=== PATIENT | male | born 1950 | race Caucasian/White ===

== ENCOUNTER 2020-12-10 09:46 | Outpatient (REF) | payer MEDICARE, MEDICAID, SELFPAY ==
--- NOTE | ~2020-12-10 | CT_ITS ---
EXAMINATION: CT CHEST SCREENING CLINICAL INFORMATION: Nicotine dependence, cigarettes. COMPARISON: CT chest screening 10/21/2019 TECHNIQUE: Multidetector volumetric CT imaging of the chest is performed without contrast using low dose technique. Additional 2-D coronal and sagittal reformatted images and axial 3-D maximum intensity projection (MIP) images are generated on the CT workstation. This CT examination was performed using dose optimization techniques as appropriate, variously including the following: *Automated exposure control *Adjustment of mA and/or kV according to patient size (this includes techniques or standardized protocols for targeted exams where dose is matched to indication/reason for exam; i.e. extremities or head) *Use of iterative reconstruction technique DLP: 50 mGy-cm FINDINGS: LUNGS: Previously seen tumor nodule in the right lung apex now measures 1 mm on axial image 11/4. The other 2 described nodules in the right upper lobe previously are not seen at this time. 4 mm calcified nodule right lower lobe axial image 38/4 is stable. MEDIASTINUM: The thyroid lobes are slightly asymmetrical but otherwise unremarkable. The central trachea and the bronchi are widely patent. There is atherosclerotic calcification of the thoracic aorta. No aneurysmal dilatation is seen. There are small shotty lymph nodes in the mediastinum. There are coronary artery calcifications present. No abnormal size mediastinal lymph nodes seen. There is no pericardial effusion. PLEURA: There is no pleural effusion. No pleural mass or thickening. AXILLA: No lymphadenopathy. UPPER ABDOMEN: Visualized liver, spleen, pancreas, and adrenal glands are unremarkable. OSSEOUS STRUCTURES: Moderate ventral spondylosis mid and lower dorsal spine. No lytic process. CT/CT lung screening IMPRESSION: Stable nodule right upper lobe. The other 2 nodules seen previously are not seen at this time. No new nodules seen. ASSESSMENT: Lung-RADS category 2: Benign. RECOMMENDATION: Low-dose annual CT chest.
== END 2020-12-10 09:47 | disposition home or self-care (01) ==
LOC: HO.CT 09:46
PROVIDERS: Visit Provider Surgery
DX: Z12.2 Encounter for screening for malignant neoplasm of respiratory organs (principal); F17.210 Nicotine dependence, cigarettes, uncomplicated
CPT/HCPCS: 71271

== ENCOUNTER 2022-04-06 06:52 | Outpatient (REF) | payer MEDICARE, MEDICAID, SELFPAY ==
--- NOTE | ~2022-04-06 | CT_ITS ---
EXAMINATION: CT CHEST SCREENING CLINICAL INFORMATION: Nicotine dependence, current cigarette smoker, 1 PPD x56 pack years. COMPARISON: None. TECHNIQUE: Multidetector volumetric CT imaging of the chest is performed without contrast using low dose technique. Additional 2D coronal and sagittal reformatted images and axial 3D maximum intensity projection (MIP) images are generated on the CT workstation. This CT examination was performed using dose optimization techniques as appropriate, variously including the following: *Automated exposure control *Adjustment of mA and/or kV according to patient size (this includes techniques or standardized protocols for targeted exams where dose is matched to indication/reason for exam; i.e. extremities or head) *Use of iterative reconstruction technique DLP: 52 mGy-cm. FINDINGS: LUNGS: The lungs are well expanded with right apical parenchymal scarring. The previously described right upper lobe nodules are not visualized at this time. There are no new noncalcified nodules seen. There is a 3 mm calcified nodule right lower lobe axial image 302/6, stable. MEDIASTINUM: The thyroid lobes are symmetric and normal. The central trachea and the bronchi are widely patent. There is arthroscopic calcification of thoracic arch. No abnormal-sized mediastinal or hilar lymph nodes seen. There is no pedicle effusion. There are coronary artery calcifications present. There is a right pericardial cystic collection measuring 3.1 x 3.3 cm, in 2019 it measured 2.6 x 2.0 cm. PLEURA: There is no pleural effusion. No pleural mass or thickening. AXILLA: No lymphadenopathy. UPPER ABDOMEN: Visualized liver, spleen, pancreas and bilateral adrenal glands are unremarkable. Gallbladder has been surgically removed. OSSEOUS STRUCTURES: No lytic or sclerotic process seen. There is moderate spondylosis dorsal spine. CT/CT lung screening IMPRESSION: Previously seen right upper lobe nodules are not well visualized. No change in 3 mm calcified nodule right lower lobe. No change in the right pericardial cyst since 2019. ASSESSMENT: Lung-RADS category 2: Benign. RECOMMENDATION: Low-dose annual CT chest.
== END 2022-04-06 06:53 | disposition home or self-care (01) ==
LOC: HO.CT 06:52
PROVIDERS: Visit Provider Physician Assistant Medical
DX: Z12.2 Encounter for screening for malignant neoplasm of respiratory organs (principal); F17.210 Nicotine dependence, cigarettes, uncomplicated
CPT/HCPCS: 71271

== ENCOUNTER → 2022-11-25 07:14 | Outpatient (REF) | payer MEDICARE, MEDICAID, SELFPAY ==
--- NOTE | 2022-11-25 07:17 | CA_ITS ---
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 The calculated ejection fraction is 53% by biplane method. - The left atrium is severely dilated. - No obvious valvular pathology seen on this study. Findings Left Ventricle Normal left ventricular cavity size. There is mildly increased left ventricular wall thickness. The left ventricular systolic function is low normal. The calculated ejection fraction is 53% by biplane method. There is no evidence of regional wall motion abnormalities. E/E prime ratio is >15, consistent with elevated filling pressures. Evidence suggests grade I (mild) diastolic dysfunction. LV peak GLS -16.4%. Right Ventricle Normal right ventricular cavity size and systolic function. Atria The left atrium is severely dilated. The right atrium is normal in size. Aortic Valve There is a normal trileaflet aortic valve. There is no aortic valve stenosis. There is trace (trivial) aortic valve regurgitation. Mitral Valve The mitral valve appears normal. There is mild mitral valve regurgitation. There is no mitral valve stenosis. Pulmonic Valve The pulmonic valve is likely normal. Tricuspid Valve There is trace tricuspid valve regurgitation. There is no evidence of pulmonary hypertension. Great Vessels The asc aorta is normal in size. Venous The inferior vena cava is normal in size and collapses greater than 50% with inspiration. Pericardium/Pleural There is no evidence of pericardial effusion. Prior Study Comparison Changes noted compared to prior study dated: 01/16/2019. LVEF slightly lower. Recommendations, Care & Conclusions No obvious valvular pathology seen on this study. Measurements 2D Linear Measurements IVSd: 1.24 0.6-0.9/0.6-1.0 cm LVIDd: 5.03 3.9-5.3/4.2-5.9 cm LVIDd Index: 2.76 2.4-3.2/2.2-3.1 cm/m2 LVIDs: 3.21 2.0-3.6 cm LVPWd: 1.29 0.7-1.1 cm Ao Root: 3.70 2.1-3.5 cm LA Diam: 4.50 2.7-3.8/3.0-4.0 cm LAIDs Index: 2.47 1.5-2.3 cm/m2 LV Mass: 317.01 67-162/88-224 g LV Mass Index: 174.18 43-95/49-115 g/m2 LVOT Diam: 2.20 3.0+(-)1.3 cm 2D Systolic Function EF 4C: 49.30 >55% EF 2C: 51.70 >55% EF BiP: 53.20 >55% Mitral Valve MV Pk E: 0.50 MV PK A: 1.26 MV Decel Time: 187.00 E/A: 0.40 E'Lateral: 5.66 E'Medial: 4.79 E/E' Med: 10.50 E/E' Lat: 8.90 PHT: 55.00 MVA PHT: 4.00 Decel Trinity: 4.47 Aortic Valve AoV Pk Rik: 1.28 AoV Mn Rik: 0.79 AoV VTI: 0.34 AoV Pk Grad: 7.00 Aov Mn Grad: 3.00 MANUEL Cont.VTI: 2.32 LVOT LVOT Pk Rik: 0.74 LVOT Mn Rik: 0.46 LVOT VTI: 0.21 LVOT Pk Grad: 2.00 LVOT Mn Grad: 1.00 LVOT Diam: 2.20 LVOT Area: 3.80 Diastolic Function MV Pk E: 0.50 MV Pk A: 1.26 E/A: 0.40 E'Medial: 4.79 E/E' Med: 10.50 E' Laterial: 5.66 E/E' Lat: 8.90 Right Ventricle TAPSE (mm): 24.80 TVS' Rik: 16.10 Tricuspid Valve TR Pk Rik: 2.30 TR Pk Grad: 21.00 Great Vessels Aorta Ao Root-2D: 3.70 2.0-3.7 cm Ao Asc: 3.60 2.1-3.4 cm Pulmonary Valve PV Pk Rik: 0.93 Peak PV Grad: 3.00 Updated in Other Vendor System with Status of Final Joo Forde MD electronically signed on 11/25/2022 2:11:24 PM with status of Final
== END ==
LOC: HO.CARD 07:14
PROVIDERS: Visit Provider Registered Nurse
DX: I49.9 Cardiac arrhythmia, unspecified (principal)
CPT/HCPCS: 93306; 93356

== ENCOUNTER → 2023-01-11 10:26 | Outpatient (BNVA) | payer MEDICARE, MEDICAID, SELFPAY | PROVIDERS: PCP Registered Nurse; Referring Provider Registered Nurse; Visit Provider Internal Medicine | DX: I44.1 Atrioventricular block, second degree (principal); I11.9 Hypertensive heart disease without heart failure; I25.10 Atherosclerotic heart disease of native coronary artery without angina pectoris; E11.8 Type 2 diabetes mellitus with unspecified complications; E78.5 Hyperlipidemia, unspecified | CPT/HCPCS: 93005; 99202 ==

== ENCOUNTER → 2023-01-31 08:25 | Outpatient (REF) | payer MEDICARE, MEDICAID, SELFPAY ==
--- NOTE | ~2023-01-31 | NM_ITS ---
EXERCISE MYOCARDIAL PERFUSION STUDY INDICATION: Abnormal EKG, multiple risk factors, assess for coronary disease and ischemia TECHNIQUE: The patient was brought in for an exercise perfusion study on 01/31/2023. Patient performed exercise as per Chepe protocol and was injected 25 mCi of sestamibi once target heart rate was achieved. Images were obtained using the SPECT gamma camera interlaced with the gating device. Images were obtained in supine position. Resting perfusion study was performed on 02/01/2023. Patient was administered 25 mCi of sestamibi intravenously at rest. Images were then obtained in supine position. Images were processed with the software and compared side to side in short axis, horizontal long axis and vertical long axis views. Total DLP 85mGy-cm. FINDINGS: Raw images were reviewed. The stress perfusion study showed minimally reduced tracer uptake in the distal inferolateral wall. No significant change with CT attenuation correction. Gating not performed due to irregular heart rates. Resting study shows minimally reduced tracer uptake in the distal part of inferolateral wall. There is improvement with CT attenuation correction suggestive of diaphragmatic attenuation artifact. Gating not performed due to irregular heart rates. The findings are consistent with mild fixed distal inferolateral defect. Could be artifactual. Less likely to represent infarct. NM/NM cardiolite stress test IMPRESSION: 1. Myocardial perfusion imaging study shows no clear evidence of ischemia. Small, mild, low risk defect in the distal inferolateral wall; suspect artifactual. 2. Gating not performed due to irregular heart rate. EKG component of the test reported separately.
--- NOTE | 2023-01-31 08:28 | HM_ITS ---
Conclusion: 1. Patient was monitored for total period of 2 days and 22 hours 2. Baseline was normal sinus rhythm with average heart rate of 61 beats per minute 3. No significant pauses or bradycardia noted 4. Mobitz type 1 second-degree AV block noted 5. Frequent PVCs noted with total burden of 9.1% 6. No patient reported events MTDD
--- NOTE | 2023-01-31 08:28 | CA_ITS ---
Acquisition Time: 2023-01-31 08:49:59 Total Exercise Time: 00:05:30 Test Indications: AFIB, HB2 Medications: SEE H Protocol: LAMONTE Max HR: 116 BPM 77% of Pred: 149 BPM Max BP: 164/060 mmHG Max Work Load: 5.1 METS Exercise stress test exercise 5 min 30 sec of Lamonte protocol stage 1 achieving 72% MPHR, 5.1 METs, with mild sob, no chest discomfort, with fatigue and request to stop, with isolated PVCs and ventricular cuplets and a 5 beat ventricular run, with second degree type 1 noted throughout, with normotensive response to exercise, with blunted heart rate response, without EKG changes of ischemia. Nuclear images pending. Test reviewed with Dr. Selby. Referred By: Joo Forde Overread By: HANK ROWE
== END ==
LOC: HO.CARD 08:25
PROVIDERS: PCP Registered Nurse; Visit Provider Internal Medicine
DX: I45.9 Conduction disorder, unspecified (principal); R00.2 Palpitations
CPT/HCPCS: 78452; 93017; 93242; A9500

== ENCOUNTER 2023-04-05 08:03 | Outpatient (AMB) | payer MEDICARE, MEDICAID, SELFPAY ==
--- NOTE | 2023-04-05 08:30 | MHC.OFFVIS ---
Intake Vital Signs 04/05/23 08:32 Height 5 ft 5 in Weight 167 lb BMI 27.8 BP 142/86 H Blood Pressure Location Lt brachial Position Sitting Pulse 70 Intake Visit Reasons: 3 month follow up after testing Intake Note: 3 month follow up Equipment Mechanic Specialist Required: Yes Equipment Mechanic Specialist Language: Tire Buster Name: Kika [id number] Accompanied by: Self / Same As Patient Allergies No Known Allergies Allergy (Verified 04/05/23 08:31) Medication List - Last Reconciled 04/05/23 by Joo Forde MD amitriptyline 25 mg PO BEDTIME amlodipine 10 mg PO QAM aspirin 81 mg PO BEDTIME atorvastatin 80 mg PO BEDTIME cholecalciferol (vitamin D3) (Vitamin D3) 25 mcg PO QAM cyanocobalamin (vitamin B-12) 500 mcg PO QAM empagliflozin (Jardiance) 25 mg PO QAM ezetimibe 10 mg PO QPM folic acid 1 mg PO QAM glipizide 5 mg PO QAM hydrochlorothiazide 25 mg PO QAM losartan 100 mg PO QAM metformin 1,000 mg PO pregabalin 50 mg PO tamsulosin 0.4 mg PO BEDTIME 30 days HPI HPI Comments History of Present Illness Details Aren returns for follow-up. He was recently seen in consultation regarding question of irregular pulse and atrial fibrillation. Patient himself does not have any clear cardiac symptoms. No known coronary artery disease or myocardial infarction or cardiomyopathy or in fact any cardiac issues whatsoever in the past. He states he is fairly active without any major limitations. Multiple medical comorbidities however including diabetes, hypertension, dyslipidemia. He is also a smoker as listed. Within limits of his activity, does not have any chest pain or shortness of breath or presyncope or any other cardiac symptoms. Since last visit, he has completed a Holter and stress test. [facility] Medical History (Updated 01/11/23 @ 11:06 by Joo Forde MD) Atherosclerotic cardiovascular disease Essential hypertension Other and unspecified hyperlipidemia Type 2 diabetes mellitus with unspecified complications Surgical History Hx of cholecystectomy Family History Mother Cancer Father No problems noted. Social History Alcohol intake: current Alcohol intake frequency: a few times a week Patient Tobacco Use Status: Current everyday Tobacco user Tobacco use type: Cigarette Cigarette Packs Per Day: 1 Cigarettes Per Day: 14 Review of Systems Const Denies weakness ENT Denies dizziness Card Denies chest pain, Denies chest pain with activity, Denies syncope, Denies rapid heart rate, Denies pedal edema, Denies edema, Denies leg edema, Denies lightheadedness, Denies palpitations, Denies dyspnea, Denies dyspnea on exertion and Denies orthopnea Resp Denies cough, Denies dyspnea and Denies dyspnea on exertion GI Denies hematochezia and Denies change in stool character Musc Denies abnormal gait, Denies muscle cramps, Denies muscle weakness, Denies numbness, Denies radiating pain into limb and Denies tingling Neuro Denies abnormal gait, Denies dizziness, Denies syncope, Denies numbness, Denies tingling and Denies weakness Endo Denies palpitations Physical Exam Vital Signs: Last Vital Signs Pulse 70 04/05/23 08:32 BP 142/86 H 04/05/23 08:32 BMI result Body Mass Index 27.8 Const General: comfortable and no acute distress Orientation/consciousness: patient oriented x3 HEENT Other: Unremarkable Head: Yes normal to inspection Neck Neck: Yes normal visual inspection Chest Chest palpation & inspection: normal inspection of the chest Resp Auscultation: clear to auscultation bilaterally Cardio Palpation: normal PMI Heart sounds: S1 normal heart sound present, S2 normal heart sound present, no gallops, no murmurs and no rubs GI Palpation (GI): Soft to palpation Back/Spine/Pelvis Other: unremarkable Skin General skin exam: no rashes or lesions noted Neuro General: patient oriented x3 Extrem General: Yes normal to inspection Psych Mental Status: mental status grossly normal Assessment & Plan Assessment & Plan (1) Heart block: Code(s): I45.9 - Conduction disorder, unspecified (2) Type 2 diabetes mellitus with unspecified complications: Code(s): E11.8 - Type 2 diabetes mellitus with unspecified complications (3) Essential hypertension: Code(s): I10 - Essential (primary) hypertension (4) Other and unspecified hyperlipidemia: Code(s): E78.5 - Hyperlipidemia, unspecified (5) Atherosclerotic cardiovascular disease: Code(s): I25.10 - Atherosclerotic heart disease of [place] coronary artery without angina pectoris (6) Left atrial enlargement: Code(s): I51.7 - Cardiomegaly Plan Cardiac studies reviewed. EKG shows Mobitz type 1 second-degree heart block. Echocardiogram with low-normal LVEF 53%. Slightly diminished global longitudinal strain. Left atrium appeared severely dilated. Chest CT shows coronary artery calcifications. There is also description of pericardial cyst. Holter monitor shows underlying sinus rhythm with an average rate of 61/Min. There is Mobitz type 1 second-degree heart block. frequent PVCs. In the exercise stress test, he did 5.1 METS. Blunted heart rate response. No EKG evidence of ischemia. He has some shortness of breath but no chest discomfort. Had isolated PVCs/ventricular couplets and 5 beat run. Mobitz type 1 second-degree findings throughout. Perfusion component without any significant findings. Overall, multiple medical comorbidities, heart block, coronary calcifications but no overt symptoms. Secondary risk factor modification and optimal management of his risk factors. diabetes/hypertension / dyslipidemia will need to be optimally regulated. Avoid any beta-blockers or other rate slowing agents. Follow-up in 1 year. Coding Level of Care Code Est Pt Level 4 (42599) Diagnoses Heart block I45.9 Type 2 diabetes mellitus with unspecified complications E11.8 Essential hypertension I10 Other and unspecified hyperlipidemia E78.5 Atherosclerotic cardiovascular disease I25.10 Left atrial enlargement I51.7
[2023-04-05 08:32] VITALS: BP 142/86; PULSE 70; BMI 27.8
== END 2023-04-05 08:51 | disposition home or self-care (01) ==
LOC: HO.HCSM 08:03
PROVIDERS: PCP Registered Nurse; Referring Provider Registered Nurse; Visit Provider Internal Medicine
DX: I45.9 Conduction disorder, unspecified (principal); E11.8 Type 2 diabetes mellitus with unspecified complications; I10 Essential (primary) hypertension; E78.5 Hyperlipidemia, unspecified; I25.10 Atherosclerotic heart disease of native coronary artery without angina pectoris; I51.7 Cardiomegaly
CPT/HCPCS: 99214

== ENCOUNTER → 2023-04-05 08:03 | Outpatient (BNVA) | payer MEDICARE, MEDICAID, SELFPAY | PROVIDERS: PCP Registered Nurse; Referring Provider Registered Nurse; Visit Provider Internal Medicine | DX: I45.9 Conduction disorder, unspecified (principal); I25.10 Atherosclerotic heart disease of native coronary artery without angina pectoris; I51.7 Cardiomegaly; I10 Essential (primary) hypertension; E78.5 Hyperlipidemia, unspecified; E11.8 Type 2 diabetes mellitus with unspecified complications | CPT/HCPCS: 99212 ==

== ENCOUNTER 2023-05-05 08:07 | Outpatient (REF) | payer MEDICARE, MEDICAID, SELFPAY ==
[2023-05-05 11:22] LABS: MANUAL DIFF FLAG NO
[2023-05-05 11:38] LABS: Basophils Percent Auto 0.4 % (0-2); Eosinophils Absolute Auto 0.1 X10*3/uL (0.0-0.4); Eosinophils Percent Auto 1.3 % (0-4); Hematocrit 51.2 % (42.0-52.0); Imm Gran Abs Auto 0.02 X10*3/uL (0.00-0.03); Imm Gran Pct Auto 0.3 % (0.0-0.4); Lymphocytes Absolute Auto 2.8 X10*3/uL (1.2-4.9); Lymphocytes Percent Auto 37.1 % (20-40); Mean Corpuscular HGB Conc 33.2 g/dl (31.0-36.0); Mean Corpuscular Hemoglobin 30.4 pg (27.0-33.0); Mean Corpuscular Volume 91.6 fL (80.0-98.0); Mean Platelet Volume 11.6 fL (9.4-12.4); Monocytes Absolute Auto 0.6 X10*3/uL (0.1-1.2); Neutrophils Percent Auto 52.9 % (45-73); Platelet Count 291 X10*3/uL (160-400); Red Blood Count 5.59 X10*6/uL (4.60-5.80); White Blood Count 7.5 X10*3/uL (4.8-10.8)
[2023-05-05 12:05] LABS: Anion Gap 12 (12-20); Blood Urea Nitrogen 10 mg/dL (9-16); Calcium 10.3 mg/dL (8.4-10.2); Carbon Dioxide 27 mmol/L (22-29); Chloride 104 mmol/L (96-108); Estimated Glomerular Filt Rate > 60; Iron 72 mcg/dL (45-160); Percent Iron Saturation 26 % (15-50); Phosphorus 3.1 mg/dL (2.7-4.5); Potassium 4.5 mmol/L (3.3-5.1); Sodium 138 mmol/L (135-145); Total Iron Binding Capacity 275 mcg/dL (228-428); Unsaturated Iron Binding 203 ug/dL; Uric Acid 6.6 mg/dL (3.4-7.0)
[2023-05-05 12:07] LABS: Vitamin D 25-OH Total 49.9 ng/mL (>30)
[2023-05-05 12:34] LABS: Creatinine Urine 53.29 mg/dL; Protein/Creatinine Ratio, Ur 2.16 (<0.2); Total Protein Urine Random 115 mg/dL (<12)
[2023-05-07 12:43] LABS: Calcium (PTHI) 10.2 mg/dL (8.6-10.3); PTHI 24 pg/mL (16-77)
[2023-05-09 09:54] LABS: IgA 108 mg/dL (70-320); IgG 718 mg/dL (600-1540); IgM 77 mg/dL (50-300)
== END 2023-05-05 08:08 | disposition home or self-care (01) ==
LOC: HO.HHCL 08:07
PROVIDERS: Visit Provider Internal Medicine Nephrology
DX: N18.2 Chronic kidney disease, stage 2 (mild) (principal)
CPT/HCPCS: 36415; 80051; 82306; 82310; 82565; 82570; 82784; 83540; 83970; 84100; 84156; 84520; 84550; 85025; 86334

== ENCOUNTER 2023-07-28 07:41 | Outpatient (REF) | payer MEDICARE, MEDICAID, SELFPAY ==
--- NOTE | ~2023-07-28 | CT_ITS ---
EXAMINATION: CT CHEST LOW-DOSE SCREENING WITHOUT CONTRAST HISTORY: Asymptomatic patient meeting criteria for lung screening. Smoker PATIENT PACK-YEAR HISTORY: 69 Current Smoker: Yes If former smoker, years since quitting: NA COMPARISON: 04/06/2022 TECHNIQUE: Multidetector volumetric non-contrast CT imaging of the chest was obtained on a [id number] 128 slice scanner using low dose screening CT technique. Axial thin section 0.625 mm reformations in soft tissue and lung windows were obtained. Sagittal and coronal reformations were obtained. Axial MIP images were also created and reviewed. RECONSTRUCTED WIDTH: 1.25 mm x 1.25 mm TOTAL EXAM DLP: 52 mGy-cm CTDIvol: 1.40 mGy FINDINGS: The mold breaker view is unremarkable LUNGS: There is stable calcified nodule in the right lower lobe, seen on image 329 series 6, measured 0.3 cm. There is punctate right upper lobe nodule seen on image 100 mL series 6 and 0.2 cm nodule in the right upper lobe seen on image 166. There is subpleural 0.2 cm nodule seen on image 214 series 6. Lung nodules are well expanded without significant changes of emphysema or COPD. MEDIASTINUM/LYMPHATIC STRUCTURES: No mediastinal, hilar or axillary adenopathy or free fluid collection. There is growing since previous study and September 2018 pericardial lesion most likely cyst measured 3.3 x 2.6 x 3.1 cm, on CT scan from 2018 lesion measured 2.8 x 2.3 x 1.[address] scan from March 2022 lesion measured 3.2 x 2.4 x 2.9 cm lesion revealed attenuation of 6HU, most likely cyst THYROID GLAND: Unremarkable CARDIOVASCULAR STRUCTURES: There is ectasia of ascending aorta, measures 3.9 cm. Coronary artery calcifications present. There is no pericardial effusion or cardiomegaly. PLEURA: There is no pleural effusion or pleural thickening VISUALIZED ABDOMEN: Included portions of the solid organs in the upper abdomen unremarkable on noncontrast imaging. There is small hiatal hernia. MUSCULO-SKELETAL: There is diffuse osteopenia. SPINAL COMPRESSION: Absent. CT/CT lung screening IMPRESSION: 1. No findings suspicious for malignancy/pulmonary nodule(s)/other. 2. Lung-Rads -2 DESCRIPTOR: benign. PHYSICAL FINDINGS (S CATEGORY): Finding: Pericardial cyst, slightly growing Significance category: No clinically significant RECOMMENDATION: Low dose lung CT. overall in 1 year. Visual estimate of coronary calcified plaque burden: None. However, this exam cannot replace a dedicated cardiac CT calcium score for accurate assessment.
== END 2023-07-28 07:42 | disposition home or self-care (01) ==
LOC: HO.CT 07:41
PROVIDERS: PCP Registered Nurse; Visit Provider Physician Assistant Medical
DX: Z12.2 Encounter for screening for malignant neoplasm of respiratory organs (principal); F17.210 Nicotine dependence, cigarettes, uncomplicated
CPT/HCPCS: 71271

== ENCOUNTER 2023-09-18 10:29 | Outpatient (AMB) | payer MEDICARE, MEDICAID, SELFPAY ==
[2023-09-18 10:45] VITALS: BP 140/66; PULSE 91; BMI 27.1
--- NOTE | 2023-09-18 10:45 | A.OFFVIS_ITS ---
Intake Vital Signs 09/18/23 10:45 Height 5 ft 5 in Weight 163 lb 2.273 oz BMI 27.1 BP 140/66 H Blood Pressure Location Lt brachial Position Sitting Pulse 91 Intake Visit Reasons: follow up Intake Note: follow up Male Model Required: No Accompanied by: grandson Allergies No Known Allergies Allergy (Verified 09/18/23 10:47) Medication List - Last Reconciled 09/18/23 by Joo Forde MD amitriptyline 25 mg PO BEDTIME amlodipine 10 mg PO QAM aspirin 81 mg PO BEDTIME atorvastatin 80 mg PO BEDTIME cholecalciferol (vitamin D3) (Vitamin D3) 25 mcg PO QAM cyanocobalamin (vitamin B-12) 500 mcg PO QAM empagliflozin (Jardiance) 25 mg PO QAM ezetimibe 10 mg PO QPM folic acid 1 mg PO QAM glipizide 5 mg PO QAM hydrochlorothiazide 25 mg PO QAM losartan 100 mg PO QAM metformin 1,000 mg PO pregabalin 50 mg PO tamsulosin 0.4 mg PO BEDTIME 30 days HPI HPI Comments History of Present Illness Details Aren returns for follow-up. In the past, he was seen in consultation regarding irregular pulse. Patient himself does not have any clear cardiac symptoms. No known coronary artery disease or myocardial infarction or cardiomyopathy or in fact any cardiac issues whatsoever in the past. He states he is fairly active without any major limitations. Multiple medical comorbidities however including diabetes, hypertension, dyslipidemia. He is also a smoker as listed. Within limits of his activity, does not have any chest pain or shortness of breath or presyncope or any other cardiac symptoms. PCP note requesting review of pericardial cyst. [facility] Medical History (Updated 09/18/23 @ 11:45 by Joo Forde MD) Pericardial cyst Atherosclerotic cardiovascular disease Other and unspecified hyperlipidemia Essential hypertension Type 2 diabetes mellitus with unspecified complications Surgical History Hx of cholecystectomy Family History Mother Cancer Father No problems noted. Social History Alcohol intake: current Alcohol intake frequency: a few times a week Patient Tobacco Use Status: Current everyday Tobacco user Tobacco use type: Cigarette Cigarette Packs Per Day: 1 Cigarettes Per Day: 14 Review of Systems Const Denies weakness ENT Denies dizziness Card Denies chest pain with activity, Denies syncope, Denies rapid heart rate, Denies pedal edema, Denies edema, Denies leg edema, Denies lightheadedness, Denies palpitations, Denies dyspnea, Denies dyspnea on exertion and Denies orthopnea Resp Denies cough, Denies dyspnea and Denies dyspnea on exertion GI Denies hematochezia and Denies change in stool character Musc Denies abnormal gait, Denies muscle cramps, Denies muscle weakness, Denies numbness, Denies radiating pain into limb and Denies tingling Neuro Denies abnormal gait, Denies dizziness, Denies syncope, Denies numbness, Denies tingling and Denies weakness Endo Denies palpitations Physical Exam Vital Signs: Last Vital Signs Pulse 91 09/18/23 10:45 BP 140/66 H 09/18/23 10:45 BMI result Body Mass Index 27.1 Const General: comfortable and no acute distress Orientation/consciousness: patient oriented x3 HEENT Other: Unremarkable Head: Yes normal to inspection Neck Neck: Yes normal visual inspection Chest Chest palpation & inspection: normal inspection of the chest Resp Auscultation: clear to auscultation bilaterally Cardio Palpation: normal PMI Heart sounds: S1 normal heart sound present, S2 normal heart sound present, no gallops, no murmurs and no rubs GI Palpation (GI): Soft to palpation Back/Spine/Pelvis Other: unremarkable Skin General skin exam: no rashes or lesions noted Neuro General: patient oriented x3 Extrem General: Yes normal to inspection Psych Mental Status: mental status grossly normal Office Procedures EKG Details: EKG with sinus rhythm at 74/Min with Mobitz type 1 second-degree heart block and minimal criteria for LVH. Can not exclude old anterior infarct. [id number], Complete Assessment & Plan Assessment & Plan (1) Heart block: Code(s): I45.9 - Conduction disorder, unspecified (2) Type 2 diabetes mellitus with unspecified complications: Code(s): E11.8 - Type 2 diabetes mellitus with unspecified complications (3) Essential hypertension: Code(s): I10 - Essential (primary) hypertension (4) Other and unspecified hyperlipidemia: Code(s): E78.5 - Hyperlipidemia, unspecified (5) Atherosclerotic cardiovascular disease: Code(s): I25.10 - Atherosclerotic heart disease of [place] coronary artery without angina pectoris (6) Left atrial enlargement: Code(s): I51.7 - Cardiomegaly (7) Pericardial cyst: Code(s): Q24.8 - Other specified congenital malformations of heart Plan Cardiac studies reviewed. EKG shows Mobitz type 1 second-degree heart block. Echocardiogram with low-normal LVEF 53%. Slightly diminished global longitudinal strain. Left atrium appeared severely dilated. In the CT chest, coronary artery calcification described. Ascending aortic size 3.9 cm. Pericardial cyst described with dimension of 3.3/2.6/3 0.1 cm. In 2021, measured 3.2/2.4/2 0.9 cm. Hence there is a slight increase in size. Holter monitor shows underlying sinus rhythm with an average rate of 61/Min. There is Mobitz type 1 second-degree heart block. frequent PVCs. In the exercise stress test, he did 5.1 METS. Blunted heart rate response. No EKG evidence of ischemia. He has some shortness of breath but no chest discom fort. Had isolated PVCs/ventricular couplets and 5 beat run. Mobitz type 1 second-degree findings throughout. Perfusion component without any significant findings. Overall, multiple medical comorbidities, heart block, coronary calcifications, pericardial cyst but no overt symptoms. Overall, continue aggressive risk factor modification. Optimal treatment of diabetes, hypertension, dyslipidemia. With regards to the Mobitz type 1 second-degree heart block, no specific management. Avoid any rate slowing agents. With regard to the pericardial cyst, no specific intervention at this time. As he is getting periodic lung CT scans, it may be followed on that. Discussed with grandson who came for the appointment. 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 Follow-up in 6 months. Coding Level of Care Code Est Pt Level 4 (71279) Diagnoses Heart block I45.9 Type 2 diabetes mellitus with unspecified complications E11.8 Essential hypertension I10 Other and unspecified hyperlipidemia E78.5 Atherosclerotic cardiovascular disease I25.10 Left atrial enlargement I51.7 Pericardial cyst Q24.8 CPT Codes EKG - CPT: 04681-[id number], Complete ([id number])
== END 2023-09-18 11:09 | disposition home or self-care (01) ==
PROVIDERS: PCP Registered Nurse; Visit Provider Internal Medicine
DX: I45.9 Conduction disorder, unspecified (principal); E11.8 Type 2 diabetes mellitus with unspecified complications; I10 Essential (primary) hypertension; E78.5 Hyperlipidemia, unspecified; I25.10 Atherosclerotic heart disease of native coronary artery without angina pectoris; I51.7 Cardiomegaly; Q24.8 Other specified congenital malformations of heart
CPT/HCPCS: 93010; 99214

== ENCOUNTER → 2023-09-18 10:29 | Outpatient (BNVA) | payer MEDICARE, MEDICAID, SELFPAY | PROVIDERS: PCP Registered Nurse; Visit Provider Internal Medicine | DX: I45.9 Conduction disorder, unspecified (principal); I25.10 Atherosclerotic heart disease of native coronary artery without angina pectoris; I10 Essential (primary) hypertension; I51.7 Cardiomegaly; Q24.8 Other specified congenital malformations of heart; E11.8 Type 2 diabetes mellitus with unspecified complications; E78.5 Hyperlipidemia, unspecified | CPT/HCPCS: 93005; 99212 ==

== ENCOUNTER 2023-10-31 08:04 | Outpatient (REF) | payer MEDICARE, MEDICAID, SELFPAY ==
[2023-10-31 11:41] LABS: Hematocrit 53.4 % (42.0-52.0); Hemoglobin 17.7 g/dl (14.0-18.0); Mean Corpuscular HGB Conc 33.1 g/dl (31.0-36.0); Mean Corpuscular Hemoglobin 29.9 pg (27.0-33.0); Mean Corpuscular Volume 90.2 fL (80.0-98.0); Mean Platelet Volume 11.7 fL (9.4-12.4); Platelet Count 292 X10*3/uL (160-400); Red Blood Count 5.92 X10*6/uL (4.60-5.80); Red Cell Distribution Width 13.2 % (11.0-16.0); White Blood Count 8.1 X10*3/uL (4.8-10.8)
[2023-10-31 12:08] LABS: Estimated Average Glucose 232 mg/dL; Hemoglobin A1c % 9.7 % (<6.0)
[2023-10-31 12:31] LABS: Alanine Aminotransferase 19 U/L (0-40); Albumin Level 4.4 g/dL (3.5-5.0); Alkaline Phosphatase 75 U/L (39-117); Anion Gap 15 (12-20); Aspartate Amino Transferase 16 U/L (5-37); Bilirubin Total 0.6 mg/dL (0.0-1.0); Blood Urea Nitrogen 14 mg/dL (9-16); Calcium 10.5 mg/dL (8.4-10.2); Carbon Dioxide 28 mmol/L (22-29); Chloride 102 mmol/L (96-108); Cholesterol 115 mg/dL (<200); Estimated Glomerular Filt Rate > 60; Glucose Random 212 mg/dL (60-115); HDL Cholesterol 50 mg/dL (>40); LDL Cholesterol Calculated 47 mg/dL (<100); Potassium 4.9 mmol/L (3.3-5.1); Sodium 140 mmol/L (135-145); Total Protein 7.5 g/dL (6.5-8.0); Triglycerides 92 mg/dL (<150)
[2023-10-31 12:35] LABS: TSH reflex Free T4 0.61 uIU/mL (0.32-4.0); Vitamin D 25-OH Total 33.5 ng/mL (>30)
[2023-10-31 12:37] LABS: HBS Num1 0.22 mIU/mL (0-7.99); HBc Num1 0.06 S/CO (0.00-0.79); HBsAGNum1 0.36 S/CO (0.00-0.99); HIV AB/AG Nonreactive (Nonreactive); HIV Num 1 0.05 S/CO (0.00-0.99); Hepatitis B Core Antibody Nonreactive (Nonreactive); Hepatitis B Surface Antigen Negative (Negative); Syphilis Screen Nonreactive (Nonreactive); ~HepC Num1 0.08 S/CO (0.00-0.79); ~Hepatitis B Surface Antibody NONREACTIVE (Nonreactive); ~Hepatitis C Antibody Nonreactive (Nonreactive)
[2023-10-31 12:42] LABS: Creatinine Urine 30.61 mg/dL; Microalbum/Creatinine Ratio Ur 1398.2 ug/mg cr (<30)
[2023-10-31 12:46] LABS: Folate 14.8 ng/mL (> or = 4.0); Prostate Specific Antigen 0.27 ng/mL (<0.05-4.0); Vitamin B12 1087 pg/mL (200-900)
[2023-10-31 13:29] LABS: CT PCR NOT DETECTED (Not Detect.); NG PCR NOT DETECTED (Not Detect.)
== END 2023-10-31 08:05 | disposition home or self-care (01) ==
LOC: HO.HHCL 08:04
PROVIDERS: Visit Provider Student in an Organized Health Care Education/Training Program
DX: Z00.00 Encounter for general adult medical examination without abnormal findings (principal); Z12.5 Encounter for screening for malignant neoplasm of prostate; Z11.4 Encounter for screening for human immunodeficiency virus [HIV]; Z13.6 Encounter for screening for cardiovascular disorders
CPT/HCPCS: 0353U; 36415; 80053; 80061; 82043; 82306; 82570; 82607; 82746; 83036; 84153; 84443; 85027; 86704; 86706; 86780; 86803; 87340; 87389

== ENCOUNTER 2023-11-17 08:59 | Outpatient (REF) | payer MEDICARE, MEDICAID, SELFPAY ==
--- NOTE | ~2023-11-17 | US_ITS ---
EXAMINATION: US RETROPERITONEAL LIMITED (AORTA) CLINICAL INFORMATION: Smoker. COMPARISON: None available. TECHNIQUE: Hernandez-scale, color Doppler and spectral Doppler evaluation of the abdominal aorta. FINDINGS: There is atherosclerotic plaque of the abdominal aorta and iliac arteries. Peak systolic velocity within the distal abdominal aorta is 115 cm/s. The proximal abdominal aorta is suboptimally visualized. It measures approximately 2 cm AP and 2.2 cm transverse diameter. Also, mid abdominal aorta is not optimally visualized. It measures approximately 1.7 cm AP x 2 cm transverse. Distal abdominal aorta is 1.6 cm AP x 1.8 cm transverse. The measurements of the common iliac arteries in maximum AP and TRV dimensions are as follows: Right Common Iliac Artery: 1.0 x 0.9 cm. Left Common Iliac Artery: 0.9 x 0.9 cm. US/US abdominal aortic aneurysm IMPRESSION: No evidence of abdominal aorta aneurysm.
== END 2023-11-17 09:00 | disposition home or self-care (01) ==
LOC: HO.US 08:59
PROVIDERS: PCP Registered Nurse; Visit Provider Student in an Organized Health Care Education/Training Program
DX: Z13.6 Encounter for screening for cardiovascular disorders (principal); Z72.0 Tobacco use
CPT/HCPCS: 76706

== ENCOUNTER 2024-03-26 07:37 | Outpatient (AMB) | payer MEDICARE, MEDICAID, SELFPAY ==
--- NOTE | 2024-03-26 08:20 | MHC.OFFVIS ---
Vital Signs 03/26/24 08:21 Height 5 ft 5 in Weight 160 lb 14.999 oz BMI 26.8 BP 128/66 Blood Pressure Location Lt brachial Position Sitting Pulse 56 Intake Visit Reasons: 6 mth f/up Intake Note: 6 month follow-up feeling good Desktop Administrator Required: Yes Desktop Administrator Services: Desktop Administrator Present Desktop Administrator Name: Tena li Allergies No Known Allergies Allergy (Verified 09/18/23 10:47) Medication List - Last Reconciled 03/26/24 by Joo Forde MD amitriptyline 25 mg PO BEDTIME amlodipine 10 mg PO QAM aspirin 81 mg PO BEDTIME atorvastatin 80 mg PO BEDTIME cholecalciferol (vitamin D3) (Vitamin D3) 25 mcg PO QAM cyanocobalamin (vitamin B-12) 500 mcg PO QAM empagliflozin (Jardiance) 25 mg PO QAM ezetimibe 10 mg PO QPM folic acid 1 mg PO QAM glipizide 5 mg PO QAM hydrochlorothiazide 25 mg PO QAM losartan 100 mg PO QAM metformin 1,000 mg PO pregabalin 50 mg PO tamsulosin 0.4 mg PO BEDTIME 30 days HPI Comments Details: Aren returns for follow-up. In the past, he was seen in consultation regarding irregular pulse. Patient himself does not have any clear cardiac symptoms. No known coronary artery disease or myocardial infarction or cardiomyopathy or in fact any cardiac issues whatsoever in the past. He states he is fairly active without any major limitations. Multiple medical comorbidities however including diabetes, hypertension, dyslipidemia. He is also a smoker as listed. Within limits of his activity, does not have any chest pain or shortness of breath or presyncope or any other cardiac symptoms. No new concerns since last seen. Feels good. [facility] Medical History (Updated 09/18/23 @ 11:45 by Joo Forde MD) Pericardial cyst Atherosclerotic cardiovascular disease Other and unspecified hyperlipidemia Essential hypertension Type 2 diabetes mellitus with unspecified complications Surgical History Hx of cholecystectomy Family History Mother Cancer Father No problems noted. Social History Alcohol intake: current Alcohol intake frequency: a few times a week Patient Tobacco Use Status: Current everyday Tobacco user Tobacco use type: Cigarette Cigarette Packs Per Day: 1 Cigarettes Per Day: 14 Review of Systems Const Denies chills, Denies fatigue, Denies fever(s), Denies frequent falls, Denies weakness, Denies weight gain and Denies weight loss ENT Denies dizziness Card Denies chest pain, Denies leg edema, Denies lightheadedness, Denies palpitations, Denies dyspnea, Denies dyspnea on exertion, Denies orthopnea and Denies other (loss of consciousness) Resp Denies cough, Denies dyspnea and Denies dyspnea on exertion GI Denies hematochezia and Denies change in stool character Musc Denies abnormal gait, Denies muscle weakness, Denies numbness, Denies radiating pain into limb and Denies tingling Neuro Denies abnormal gait, Denies dizziness, Denies frequent falls, Denies numbness, Denies tingling and Denies weakness Endo Denies fatigue and Denies palpitations Physical Exam Vital Signs: Last Vital Signs Pulse 56 03/26/24 08:21 BP 128/66 03/26/24 08:21 BMI result Body Mass Index 26.8 Const General: comfortable and no acute distress Orientation/consciousness: patient oriented x3 HEENT Other: Unremarkable Head: Yes normal to inspection Neck Neck: Yes normal visual inspection Chest Chest palpation & inspection: normal inspection of the chest Resp Auscultation: clear to auscultation bilaterally Cardio Palpation: normal PMI Heart sounds: S1 normal heart sound present, S2 normal heart sound present, no gallops, no murmurs and no rubs GI Palpation (GI): Soft to palpation Back/Spine/Pelvis Other: unremarkable Skin General skin exam: no rashes or lesions noted Neuro General: patient oriented x3 Extrem General: Yes normal to inspection Psych Mental Status: mental status grossly normal Assessment & Plan Assessment & Plan (1) Heart block: Code(s): I45.9 - Conduction disorder, unspecified Category: Medical (2) Type 2 diabetes mellitus with unspecified complications: Code(s): E11.8 - Type 2 diabetes mellitus with unspecified complications Category: Medical (3) Essential hypertension: Code(s): I10 - Essential (primary) hypertension Category: Medical (4) Other and unspecified hyperlipidemia: Code(s): E78.5 - Hyperlipidemia, unspecified Category: Medical (5) Atherosclerotic cardiovascular disease: Code(s): I25.10 - Atherosclerotic heart disease of [place] coronary artery without angina pectoris Category: Medical (6) Left atrial enlargement: Code(s): I51.7 - Cardiomegaly Category: Medical (7) Pericardial cyst: Code(s): Q24.8 - Other specified congenital malformations of heart Category: Medical Plan Cardiac studies reviewed. EKG shows Mobitz type 1 second-degree heart block. Echocardiogram with low-normal LVEF 53%. Slightly diminished global longitudinal strain. Left atrium appeared severely dilated. In the CT chest, coronary artery calcification described. Ascending aortic size 3.9 cm. Pericardial cyst described with dimension of 3.3/2.6/3.1 cm. In 2021, measured 3.2/2.4/2.9 cm. Hence there is a slight increase in size. Holter monitor shows underlying sinus rhythm with an average rate of 61/Min. There is Mobitz type 1 second-degree heart block. frequent PVCs. In the exercise stress test, he did 5.1 METS. Blunted heart rate response. No EKG evidence of ischemia. He has some shortness of breath but no chest discomfort. Had isolated PVCs/ventricular couplets and 5 beat run. Mobitz type 1 second-degree findings throughout. Perfusion component without any significant findings. Overall, multiple medical comorbidities, heart block, coronary calcifications, pericardial cyst but no overt symptoms. He does not need any specific management from cardiac. Mainly risk factor modification diabetes, hypertension and dyslipidemia. With regard to the Mobitz 1 second-degree heart block, will need to monitor for any progressive heart blocks. Avoid rate slowing agents like beta-blockers. No specific management for the pericardial cyst. Whenever he is getting lung CT scan, that can also be followed. We will follow him back in about 6 months' time. Coding Level of Care Code Est Pt Level 4 (32791) Diagnoses Heart block I45.9 Type 2 diabetes mellitus with unspecified complications E11.8 Essential hypertension I10 Other and unspecified hyperlipidemia E78.5 Atherosclerotic cardiovascular disease I25.10 Left atrial enlargement I51.7 Pericardial cyst Q24.8
[2024-03-26 08:21] VITALS: BP 128/66; PULSE 56; BMI 26.8
== END 2024-03-26 09:06 | disposition home or self-care (01) ==
PROVIDERS: PCP Registered Nurse; Visit Provider Internal Medicine
DX: I45.9 Conduction disorder, unspecified (principal); E11.8 Type 2 diabetes mellitus with unspecified complications; I10 Essential (primary) hypertension; E78.5 Hyperlipidemia, unspecified; I25.10 Atherosclerotic heart disease of native coronary artery without angina pectoris; I51.7 Cardiomegaly; Q24.8 Other specified congenital malformations of heart
CPT/HCPCS: 99214

== ENCOUNTER → 2024-03-26 07:37 | Outpatient (BNVA) | payer MEDICARE, MEDICAID, SELFPAY | PROVIDERS: PCP Registered Nurse; Visit Provider Internal Medicine | DX: I25.10 Atherosclerotic heart disease of native coronary artery without angina pectoris (principal); I10 Essential (primary) hypertension; I51.7 Cardiomegaly; I45.9 Conduction disorder, unspecified; E78.5 Hyperlipidemia, unspecified; Q24.8 Other specified congenital malformations of heart; E11.9 Type 2 diabetes mellitus without complications | CPT/HCPCS: 99212 ==

== ENCOUNTER 2024-10-01 08:35 | Outpatient (AMB) | payer MEDICARE, MEDICAID, SELFPAY ==
--- NOTE | 2024-10-01 08:51 | MHC.OFFVIS ---
Vital Signs 10/01/24 08:54 Height 5 ft 5 in Weight 156 lb 8.451 oz BMI 26.0 BP 132/60 Blood Pressure Location Lt brachial Position Sitting Pulse 48 L Intake Visit Reasons: 6 mth f/up Valet Attendant Required: Yes Valet Attendant Services: Valet Attendant Present Valet Attendant Name: Douglas [id number] Accompanied by: Self / Same As Patient Allergies No Known Allergies Allergy (Verified 09/18/23 10:47) Medication List - Last Reconciled 10/01/24 by Joo Forde MD amitriptyline 25 mg PO BEDTIME amlodipine 10 mg PO QAM aspirin 81 mg PO BEDTIME atorvastatin 80 mg PO BEDTIME cholecalciferol (vitamin D3) (Vitamin D3) 25 mcg PO QAM cyanocobalamin (vitamin B-12) 500 mcg PO QAM empagliflozin (Jardiance) 25 mg PO QAM ezetimibe 10 mg PO QPM folic acid 1 mg PO QAM glipizide 5 mg PO QAM hydrochlorothiazide 25 mg PO QAM losartan 100 mg PO QAM metformin 1,000 mg PO BID pregabalin 50 mg PO tamsulosin 0.4 mg PO BEDTIME 30 days HPI Comments Details: Aren returns for follow-up. Main issue is Mobitz type 1 second-degree heart block. He also has a pericardial cyst but asymptomatic. He states he feels fine. Has no cardiac symptoms. Active without any limitations. Many comorbidities however including diabetes, hypertension, dyslipidemia. He is also a smoker as listed. [facility] Medical History (Updated 07/15/24 @ 14:10 by BAIRON Garza) History of latent tuberculosis Nicotine dependence, cigarettes, uncomplicated Pericardial cyst Atherosclerotic cardiovascular disease Other and unspecified hyperlipidemia Essential hypertension Type 2 diabetes mellitus with unspecified complications Surgical History Hx of cholecystectomy Family History Mother Cancer Father No problems noted. Social History Alcohol intake: current Alcohol intake frequency: a few times a week Patient Tobacco Use Status: Current everyday Tobacco user Tobacco use type: Cigarette Cigarette Packs Per Day: 1 Cigarettes Per Day: 14 Review of Systems Const Denies chills, Denies fatigue, Denies fever(s), Denies weight gain and Denies weight loss ENT Denies dizziness Card Denies chest pain, Denies leg edema, Denies lightheadedness, Denies palpitations, Denies dyspnea on exertion, Denies orthopnea and Denies other Resp Denies cough and Denies dyspnea on exertion GI Denies hematochezia and Denies change in stool character Musc Denies abnormal gait, Denies muscle weakness, Denies numbness, Denies radiating pain into limb and Denies tingling Neuro Denies abnormal gait, Denies dizziness, Denies numbness and Denies tingling Endo Denies fatigue and Denies palpitations Physical Exam Vital Signs: Last Vital Signs Pulse 48 L 10/01/24 08:54 BP 132/60 10/01/24 08:54 BMI result Body Mass Index 26.0 Const General: comfortable and no acute distress Orientation/consciousness: patient oriented x3 HEENT Other: Unremarkable Head: Yes normal to inspection Neck Neck: Yes normal visual inspection Chest Chest palpation & inspection: normal inspection of the chest Resp Auscultation: clear to auscultation bilaterally Cardio Palpation: normal PMI Heart sounds: S1 normal heart sound present, S2 normal heart sound present, no gallops, no murmurs and no rubs GI Palpation (GI): Soft to palpation Back/Spine/Pelvis Other: unremarkable Skin General skin exam: no rashes or lesions noted Neuro General: patient oriented x3 Extrem General: Yes normal to inspection Psych Mental Status: mental status grossly normal Office Procedures EKG Details: EKG shows sinus rhythm, Mobitz type 1 second-degree heart block and left anterior fascicular block. Moderate voltage criteria for LVH. [id number], Complete Assessment & Plan Assessment & Plan (1) Heart block: Code(s): I45.9 - Conduction disorder, unspecified Category: Medical (2) Type 2 diabetes mellitus with unspecified complications: Code(s): E11.8 - Type 2 diabetes mellitus with unspecified complications Category: Medical (3) Essential hypertension: Code(s): I10 - Essential (primary) hypertension Category: Medical (4) Other and unspecified hyperlipidemia: Code(s): E78.5 - Hyperlipidemia, unspecified Category: Medical (5) Atherosclerotic cardiovascular disease: Code(s): I25.10 - Atherosclerotic heart disease of [place] coronary artery without angina pectoris Category: Medical (6) Left atrial enlargement: Code(s): I51.7 - Cardiomegaly Category: Medical (7) Pericardial cyst: Code(s): Q24.8 - Other specified congenital malformations of heart Category: Medical Plan Cardiac studies reviewed. EKG shows Mobitz type 1 second-degree heart block. Echocardiogram with low-normal LVEF 53%. Slightly diminished global longitudinal strain. Left atrium appeared severely dilated. In the CT chest, coronary artery calcification described. Ascending aortic size 3.9 cm. Pericardial cyst described with dimension of 3.3/2.6/3.1 cm. In 2021, measured 3.2/2.4/2.9 cm. Holter monitor shows underlying sinus rhythm with an average rate of 61/Min. There is Mobitz type 1 second-degree heart block. frequent PVCs. In the exercise stress test, he did 5.1 METS. Blunted heart rate response. No EKG evidence of ischemia. He has some shortness of breath but no chest discomfort. Had isolated PVCs/ventricular couplets and 5 beat run. Mobitz type 1 second-degree findings throughout. Perfusion component without any significant findings. Overall, multiple medical comorbidities, heart block, coronary calcifications, pericardial cyst but no overt symptoms. With regard to the heart block, discussed with patient about symptoms of progressive heart block including dizziness and presyncope/syncope. If any such instance, advised to seek urgent help. He understands that. Avoid rate slowing agents. With regard to the pericardial cyst, no specific management as he is asymptomatic. When he is getting chest CT scans for lungs, this can also be followed. Unless any major increase in size, most likely conservative care. Otherwise, mainly risk factor modification of diabetes, hypertension, dyslipidemia and smoking cessation. Follow-up in 6 months with a Holter monitor. Discussed using educational sign language interpreter. Orders: Orders ECG 3 day holter monitor 6 Months I44.1 - Atrioventricular block, second degree Coding Level of Care Code Est Pt Level 4 (03540) Diagnoses Heart block I45.9 Type 2 diabetes mellitus with unspecified complications E11.8 Essential hypertension I10 Other and unspecified hyperlipidemia E78.5 Atherosclerotic cardiovascular disease I25.10 Left atrial enlargement I51.7 Pericardial cyst Q24.8 CPT Codes EKG - CPT: 71122-[id number], Complete ([id number])
[2024-10-01 08:54] VITALS: BP 132/60; PULSE 48; BMI 26.0
== END 2024-10-01 09:17 | disposition home or self-care (01) ==
PROVIDERS: PCP Registered Nurse; Visit Provider Internal Medicine
DX: I45.9 Conduction disorder, unspecified (principal); E11.8 Type 2 diabetes mellitus with unspecified complications; I10 Essential (primary) hypertension; E78.5 Hyperlipidemia, unspecified; I25.10 Atherosclerotic heart disease of native coronary artery without angina pectoris; I51.7 Cardiomegaly; Q24.8 Other specified congenital malformations of heart
CPT/HCPCS: 93010; 99214

== ENCOUNTER → 2024-10-01 08:35 | Outpatient (BNVA) | payer MEDICARE, MEDICAID, SELFPAY | PROVIDERS: PCP Registered Nurse; Visit Provider Internal Medicine | DX: I45.9 Conduction disorder, unspecified (principal); I25.10 Atherosclerotic heart disease of native coronary artery without angina pectoris; I10 Essential (primary) hypertension; I51.7 Cardiomegaly; E78.5 Hyperlipidemia, unspecified; F17.210 Nicotine dependence, cigarettes, uncomplicated; E11.8 Type 2 diabetes mellitus with unspecified complications; Q24.8 Other specified congenital malformations of heart | CPT/HCPCS: 93005; 99212 ==

== ENCOUNTER 2024-12-17 08:06 | Outpatient (REF) | payer MEDICARE, MEDICAID, SELFPAY ==
--- OUTSIDE RECORDS SUMMARY | 2024-12-17 08:18 | XMS_ITS | Clinical Summary ---
Author Organization [employer] Address [address] [facility] [address] [place] [address] Care Team Providers Care Dispatch Officer Name Role Phone Carlita Angela MD Primary Care Pro vider Allergies No known active allergies Medications Skin Protectants, Misc. (eucerin) cream Apply topically every 12 (twelve) hours. 01/16/20 21 Active losartan-hydroC HLOROthiazide (Hyzaar) 100-25 MG tablet TAKE 1 TABLET BY MOUTH EVERY MORNING 90 tablet 1 04/16/20 24 Active empagliflozin (Jardiance) 25 MGIndications:T ype 2 diabetes mellitus with retinopathy, without long-term current use of insulin, macular edema presence unspecified, unspecified laterality, unspecified retinopathy severity (CMS/HCC) TAKE 1 TABLET BY MOUTH EVERY MORNING 90 tablet 1 04/16/20 24 Active OneTouch Ultra Test test stripIndication s:Type 2 diabetes mellitus with retinopathy, without long-term current use of insulin, macular edema presence unspecified, unspecified laterality, unspecified retinopathy severity (CMS/HCC) TEST BLOOD SUGAR TWICE DAILY 100 strip 11 07/01/20 24 Active amLODIPine (Norvasc) 10 MG tablet TAKE 1 TABLET BY MOUTH EVERY MORNING 90 tablet 1 07/10/20 24 Active loratadine (Claritin) 10 MG tabletIndicatio ns:Seasonal allergies TAKE 1 TABLET BY MOUTH EVERY MORNING NEEDED FOR ALLERGIES 90 tablet 1 07/10/20 24 Active amitriptyline (Elavil) 25 MG tablet TAKE 1 TABLET BY MOUTH AT BEDTIME 90 tablet 1 07/10/20 24 Active glipiZIDE (Glucotrol) 5 MG tabletIndicatio ns:Type 2 diabetes mellitus with retinopathy, without long-term current use of insulin, macular edema presence unspecified, unspecified laterality, unspecified retinopathy severity (CMS/HCC) TAKE 1 TABLET BY MOUTH EVERY MORNING WITH FOOD 90 tablet 1 07/10/20 24 Active Lancets (OneTouch Delica Plus [id number]) [facility] [place] BLOOD SUGAR TWICE DAILY 100 each 11 07/19/20 24 Active Aspirin Low Dose 81 MG EC tabletIndicatio ns:Pulmonary nodules TAKE 1 TABLET BY MOUTH AT BEDTIME 90 tablet 1 08/13/20 24 Active metFORMIN (Glucophage) 1000 MG tablet TAKE 1 TABLET BY MOUTH TWICE DAILY IN THE MORNING AND IN THE EVENING 180 tablet 1 08/13/20 24 Active Januvia 25 MG tabletIndicatio ns:Type 2 diabetes mellitus with retinopathy, without long-term current use of insulin, macular edema presence unspecified, unspecified laterality, unspecified retinopathy severity (CMS/HCC) TAKE 1 TABLET BY MOUTH EVERY MORNING 90 tablet 10/02/19 25 Active atorvastatin (Lipitor) 80 MG tablet TAKE 1 TABLET BY MOUTH AT BEDTIME 90 tablet 10/02/19 25 Active Alcohol Swabs (Alcohol Prep) 70 % pads USE DIRECTED TWICE DAILY NEEDED 100 each 3 10/02/19 25 Active ezetimibe (Zetia) 10 MG tablet TAKE 1 TABLET BY MOUTH AT BEDTIME 90 tablet 1 10/10/19 25 Active cholecalciferol (D3-1000) 25 MCG (1000 UT) capsule TAKE 1 CAPSULE BY MOUTH EVERY MORNING 90 capsule 1 10/10/19 25 Active folic acid (Folvite) 1 MG tabletIndicatio ns:Acute reaction to stress TAKE 1 TABLET BY MOUTH EVERY MORNING 90 tablet 1 10/10/19 25 Active cyanocobalamin (Vitamin B-12) 500 MCG tablet TAKE 1 TABLET BY MOUTH EVERY MORNING (MONDAY, MONDAY, MONDAY) 12 tablet 2 11/20/19 25 Active pregabalin (Lyrica) 50 MG capsuleIndicati ons:Fibromyalgi a TAKE 1 CAPSULE BY MOUTH TWICE DAILY IN THE MORNING AND AT BEDTIME 60 capsule 2 11/20/19 25 Active tiotropium (Spiriva HandiHaler) 18 MCG inhalation capsuleIndicati ons:Cigarette nicotine dependence without complication,Ch ronic obstructive pulmonary disease, unspecified COPD type (CMS/HCC) USE 1 CAPSULE FOR INHALATION ONCE A DAY DO NOT SWALLOW CAPSULE 30 capsule 3 12/12/19 25 Active cyanocobalamin (Vitamin B-12) 500 MCG tablet TAKE 1 TABLET BY MOUTH EVERY MORNING (MONDAY, MONDAY, MONDAY) 30 tablet 04/18/20 24 025 Discontinued tiotropium (Spiriva HandiHaler) 18 MCG inhalation capsuleIndicati ons:Cigarette nicotine dependence without complication,Ch ronic obstructive pulmonary disease, unspecified COPD type (CMS/HCC) USE 1 CAPSULE FOR INHALATION ONCE A DAY. DO NOT SWALLOW CAPSULE. 30 capsule 3 05/10/20 24 025 Discontinued pregabalin (Lyrica) 50 MG capsuleIndicati ons:Fibromyalgi a TAKE 1 CAPSULE BY MOUTH TWICE DAILY IN THE MORNING AND AT BEDTIME 60 capsule 2 07/15/20 24 025 Discontinued Active Problems Problem Noted Date Diagnosed Date Albuminuria 06/20/2024 Tobacco use 09/29/2023 Alcohol abuse 09/29/2023 Mild nonproliferative diabet ic retinopathy of both eyes without macular edema associated with type 2 diabetes mellitus 09/28/2023 Pericardial cyst 08/09/2023 Health care maintenance 02/22/2023 Overview (04/07/2023): Routine Health Maintenance: Immunizations: Received PCV 20 02/22/23 HIV: Nonreactive 11/18/22 Hep C: Nonreactive 11/18/22 Hepatitis B: nonreactive surface antibodies 11/18/22. Recommend repeat booster series Colonoscopy: 06/21/2013 normal colon, repeat 10 years 05/2023 PSA: WNL 05/14/2020 Lung cancer: Per [facility] annual low-dose lung CT scan age 50-80 who meet criteria: current smoker or quit in last 15 years; at least 20 pack history. Discuss next visit Eye: Discuss next visit Dental: Discuss next visit Chronic obstructive pulmonary disease 02/22/2023 Overview (02/22/2023): Cigarette use x 58 years No spirometry or PFTs performed Assessment & Plan (02/22/2023 10:01 AM EDT): Diffuse wheezing and rhonchi on pulmonary exam today. Chronic cigarette use Will Treat empirically for COPD Declines smoking cessation Received PCV 20 vaccine today Rx Spiriva Handihaler, use once a day + Ventolin DAPHNE use PRN Atherosclerosis of [place] co ronary artery of [place] heart without angina pectoris 02/22/2023 Overview (02/22/2023): Cardiology appt 01/11/23: Cardiac studies reviewed. EKG, as above shows Mobitz type 1 second-degree heart block. Recent echocardiogram with low-normal LVEF 53%. Slightly diminished global longitudinal strain. Left atrium appeared severely dilated. Chest CT shows coronary artery calcifications. There is also description of pericardial cyst. Overall, multiple medical comorbidities, heart block, coronary calcifications but no overt symptoms. Irregular heart rate as mentioned in the PCP note is most likely from the heart block itself. We will get a Holter monitor for further evaluation. Also proceed with ischemia evaluation with stress testing. Follow-up after completion of the above. Assessment & Plan (02/22/2023 10:58 AM EDT): Concerning findings Pending results from Stress test and Holter monitor Overall asymptomatic Continue f/u w/ specialist Next appt Apr 2023 Heart block 02/22/2023 Overview (02/22/2023): [facility] [place] appt 01/11/23: Cardiac studies reviewed. EKG, as above shows Mobitz type 1 second-degree heart block. Recent echocardiogram with low-normal LVEF 53%. Slightly diminished global longitudinal strain. Left atrium appeared severely dilated. Chest CT shows coronary artery calcifications. There is also description of pericardial cyst. Overall, multiple medical comorbidities, heart block, coronary calcifications but no overt symptoms. Irregular heart rate as mentioned in the PCP note is most likely from the heart block itself. We will get a Holter monitor for further evaluation. Also proceed with ischemia evaluation with stress testing. Follow-up after completion of the above. Assessment & Plan (02/22/2023 10:57 AM EDT): Discontinued metoprolol d/t heart block Cardiology agreed that irregular heart rhythm on exam is r/t to heart block, not A. Fib Followup 3 months w/ new PCP Edentulous 11/18/2022 Multiple nodules of lung 12/31/2018 Overview (11/18/2022): Smoker Annual Low dose lung CT Last screening 04/08/21 - stable nodule R upper lung. No new nodules. BIRADS 2 Allergic rhinitis 06/29/2015 Essential hypertension 06/29/2015 Hyperlipidemia 06/29/2015 Neuropathy associated with endocrine disorder Overweight 06/29/2015 Type 2 diabetes mellitus 06/29/2015 Overview (02/22/2023): A1c 9.7 on 02/22/23; increased 11/18/22 7.5 Continue Jardiance 25mg; Metformin 1000mg BID Reports hypoglycemic episodes. Will discontinue Actos and change Glipizide to 5mg once daily in the AM with food Declines visual educator and diet changes Start Trulicity 0.75mg/0.5ml weekly (02/22/23) Check BG daily fasting Microalbumin 11/18/22; moderately increased. Continue Jardiance Lipid panel: 11/18/22; Triglycerides 167 Foot exam: 05/07 sites sensation. Declines podiatry care. Pt cares for his own nails. Dry skin on feet and tinea pedis Tdap:??03/28/22 PCV:??11/13/2017. Due for PCV 20; received today AVERY/ARB: Losartan 100mg Statin: Atorvastatin 80mg Assessment & Plan (02/22/2023 9:53 AM EDT): A1c 02/22/23 9.7; increased from 11/18/22 Glucose 157 today Discussed avoiding sugar in coffee, cakes, and limiting rice. Declines visual educator and diet changes Start Trulicity 0.75mg/0.5ml weekly (02/22/23) Followup 3 months with new PCP LTBI (latent tuberculosis infection) Resolved Problems Problem Noted Date Diagnosed Date Resolved Date Smoker 06/29/2015 02/22/2023 Encounters Date Type Department Care Team Description 12/11/2024 Refill [facility] [address] [place] [address] Carlita Angela MD Cigarette nicotine dependence without complication; Chronic obstructive pulmonary disease, unspecified COPD type (CMS/HCC) 12/10/2024 Patient Outreach [facility] [address] [place] [address] Carlita Angela MD Pre-visit Planning (SDOH negative, Tobacco screening negative. ) 11/18/2024 Refill [facility] [address] [place] [address] Carlita Angela MD Fibromyalgia 10/25/2024 Telephone [facility] [address] [place] [address] Carlita Angela MD November10/10/2024 Refill [facility] [address] [place] [address] Carlita Angela MD Acute reaction to stress 10/02/2024 Refill [facility] [address] [place] [address] Carlita Angela MD Type 2 diabetes mellitus with retinopathy, without long-term current use of insulin, macular edema presence unspecified, unspecified laterality, unspecified retinopathy severity (CMS/[facility]) from Last 3 Months Immunizations Name Administration Dates Next Due Hep A, Adult 09/22/2010,03/22/2010 Hep B, adult 09/22/2010,05/04/2010,03/22/2010 Influenza High-dose Quadriva lent Preservative Free 08/04/2023,06/09/2022,06/02/2020 Influenza injectable quadriv alent IIV4 with preservative 05/18/2016,06/29/2015 Influenza injectable quadriv alent preservative free 07/16/2021 Influenza, High Dose Seasona l, Preservative Free 06/19/2024,07/15/2019,06/27/2018 Influenza, IIV3, injectable 07/23/2014, 1 Influenza, Split (incl. gregoria fied surface antigen) 06/06/2013,05/07/2012 Pfizer Covid-19 Vaccine 12+ 06/19/2024, 4 Pneumococcal Conjugate PCV 13 09/16/2016 Pneumococcal Conjugate PCV 20 02/22/2023 Pneumococcal Polysaccharide PPSV23 11/13/2017, TD (adult), 2 Lf tetanus tox oid, preservative free, adsorbed 03/28/2022 Tdap 01/19/2010 Zoster, Recombinant 06/18/2020 Zoster, live 06/29/2015 Family History Medical History Relation Name Comments Colon cancer Maternal Grandfather Colon cancer 80s Mother cousin: liver ca Other Relation Name Status Comments Father Maternal Grandfather Mother Other Social History Tobacco Use Types Packs/Day Years Used Date Smoking Tobacco: Every Day Cigarettes 0.8 59 Smokeless Tobacco: Never Tobacco Cessation:Ready to Q uit: Not Asked; Counseling Given: Not Answered Comments:Started smoking at 15 y of age ,smoking for 59 y. Now 8 to 12 a day before 20 to 30 cig a day ---PQT calc a year 59 y Alcohol Use Standard Drinks/Week Comments Yes 8 (1 standard drink = 0.6 oz pure alcohol) drinks up to 4 beer cans a day up to 3 times a week Depression Answer Date Recorded Patient Health Questionnaire-9 Score 0 11/18/2022 Housing Stability Answer Date Recorded What is your housing situation today? I have joel do 12/10/[address] you li ve. Do you have problems with any of the following? None of the above 12/10/2024 Food Insecurity Answer Date Recorded Within the past 12 months, y ou worried that your food would run out before you got money to buy more: Never True 12/10/2024 Within the past 12 months,th e food you bought just didn't last and you didn't have enough money to get more: Never True Transportation Answer Date Recorded In the past 12 months, has l ack of transportation kept you from medical appts, meetings, work or from getting things needed for daily living? No 12/10/2024 Utilities Answer Date Recorded In the past 12 months, has t he electric, gas, oil or water company threatened to shut off services in your home? No 12/10/2024 Depression Answer Date Recorded Patient Health Questionnaire-2 Score 0 11/18/2022 Internet Access Answer Date Recorded Internet Access Q1 Yes 12/10/2024 Internet Access Q2 Not on file 12/10/2024 Sex and Gender Information Value Date Recorded Sex Assigned at Male 06/27/2022 10:21 AM EDT Legal Sex Male 10:21 AM EDT Gender Identity Male 06/27/2022 10:21 AM EDT Sexual Orientation Straight 06/27/2022 10 :21 AM EDT Last Filed Vital Signs Vital Sign Reading Time Taken Comments Blood Pressure 130/60 06/19/2024 1:58 PM EDT Pulse 68 06/19/2024 1:58 PM EDT Temperature 36.7 ??C (98 ??F) 06/19/2024 1:58 PM EDT Respiratory Rate 24 06/19/2024 1:58 PM EDT Oxygen Saturation 97% 11/03/2023 9:36 AM EST Inhaled Oxygen Concentration - - Weight 71.3 kg (157 lb 4 oz) 06/19/2024 1:58 PM EDT Height 165.1 cm (5' 5 ) 06/19/2024 1:58 PM EDT Body Mass Index 26.17 06/19/2024 1:58 PM EDT Plan of Treatment Upcoming Encounters Date Type Department Care Team (Late st Contact Info) Description 12/19/2024 9:00 AM EDT Office Visit [facility] [address] [place] [address] Carlita Angela MD [address] [place] [address] 01/03/2025 11:00 AM EDT Office Visit [facility] [address] [place] [address] Francisco, Radha, OD [address] [place] [address] Health Maintenance Due Date Last Done Comments CT Colonography 1950 Colonoscopy 1950 Colorectal Cancer Screening 1950 FIT DNA/Cologuard 1950 FIT 1950 FOBT 1950 Sigmoidoscopy 1950 Alcohol/Substance Use Screening 1963 RSV Patients and Patients Aged 60 years or older (1 - Risk 60-74 years 1-dose series) 2011 Zoster Vaccines (3 of 3) 08/13/2020 06/18/2020, 11/0 09/2014 Depression Screening 11/19/2023 11/18/2022, 11/19/19 23 Diabetes: Foot Exam 12/22/2023 12/21/2022, 12/21/2022, 12/21/2022, Additional history exists Eye Exam 05/11/2024 05/11/2023, 04/28, 05/11/2023, Additional history exists Diabetes: Hemoglobin A1C 09/19/2024 024, 10/31/2023, 02/22/2023, Additional history exists Diabetes: Urine Protein Screening 10/30/2024 10/31/2023, 11/18/2022, 04/20/2022, Additional history exists Lipid Panel 10/30/2024 10/31/2023, 10/27, 04/20/2022, Additional history exists Tobacco Screening 11/02/2024 11/03/2023 SDOH Screening 12/10/2025 12/10/2024 DTaP/Tdap/Td Vaccines (3 - Td or Tdap) 03/28/2032 03/28/2022, 01/19/2010 Hepatitis A Vaccines Aged Out 09/22/2010, 03/22/20 10 No longer eligible based on patient's age to complete this topic Hepatitis B Vaccines Completed 09/22/2010, 05/04/2010, 03/22/2010 Pneumococcal Vaccine: 50+ Years Completed 02/22/2023, 11/13/2017, 09/16/2016, Additional history exists Lung Cancer Screening Discontinued 07/28/2023 Hepatitis C Screening Completed 10/31/2023, 023 COVID-19 Vaccine Completed 06/19/2024, 08/2023, 07/30/2022, Additional history exists Influenza Vaccine Completed 06/19/2024, , 06/09/2022, Additional history exists HIB Vaccines Aged Out No longer eligi ble based on patient's age to complete this topic HPV Vaccines Aged Out No longer eligi ble based on patient's age to complete this topic IPV Vaccines Aged Out No longer eligi ble based on patient's age to complete this topic Meningococcal Vaccine Aged Out No nadya tam eligible based on patient's age to complete this topic RSV under 20 months Aged Out No longe r eligible based on patient's age to complete this topic Rotavirus Vaccines Aged Out No longer eligible based on patient's age to complete this topic Procedures Procedure Name Priority Date/Time Associated Diagnosis Comments POCT GLYCATED HEMOGLOBIN, TOTAL Routine 06/19/2024 2:09 PM EDT Type 2 diabetes mellitus with retinopathy, without long-term current use of insulin, macular edema presence unspecified, unspecified laterality, unspecified retinopathy severity (CMS/HCC) ALBUMIN, RANDOM URINE W/CREATININE Routine 10/31/2023 8:10 AM EST HEPATITIS C AB W/REFL TO HCV RNA, QN, PCR Routine 10/31/2023 8:06 AM EST Annual physical exam LIPID PANEL, STANDARD Routine 10/31/2023 8:06 AM EST Annual physical exam LDCT LUNG SCREENING Routine 07/28/2023 8 :11 AM EST from Last 3 Months or Most Recently Relevant to Health Maintenance Results * (ABNORMAL) POCT HGB A1C (06/19/2024 2:09 PM EDT) Hemoglobin A1C 9.3(A) 4.0 - 6.0 % QC Media Lot # [id number] Lot# Expiration Date Blood 06/19/2024 2:09 PM EDT Carlita Cantu MD POINT OF CARE JEREMY T ENTER/EDIT ORDERABLES Final Result * (ABNORMAL) Albumin, Random Urine W/Creatinine (10/31/2023 8:10 AM EST) Creatinine, Urine 30.61 mg/dL [facility] Microalbumin Urine 428.0 mg/L [facility] Microalbum Creatinine Ratio Ur 1,398.2(H ) <30 ug/mg cr [facility] Comment:Albumin/Creatinine R atio Reference Ranges: Normal: < 30 ug/mg creatinine Microalbuminuria: 30 - 300 ug/mg creatinineClinical Albuminuria: > 300 ug/mg creatinine 10/31/2023 8:10 AM EST 10/31/2023 11:40 AM EST us Carlita Cantu MD LAB URINE ORDERAB LES Final Result Performing Organization Address [facility] Co de Phone Number [facility] [address] [place] [phone] * Hepatitis C Antibody with Reflex to HCV, RNA, Quantitative, Real-Time PCR (10/31/2023 8:06 AM EST) Hepatitis C Antibody Nonreactive Nonreactive [facility] Comment:Antibodies to HCV no t detected; does not exclude early acuteHCV infection. Blood Venous blood specimen / Unknown 10/31/2023 8:06 AM EST 10/31/2023 11:33 AM EST us Carlita Cantu MD LAB BLOOD ORDERAB LES Final Result Performing Organization Address [facility]/ZIP Co de Phone Number [facility] [address] [place] [phone] * Lipid Panel, Standard (10/31/2023 8:06 AM EST) Triglycerides 92 <150 mg/dL [facility] Comment:Desirable Triglyceri de: less than 150 mg/dLBorderline High Triglyceride 150-199 mg/dLHigh Triglyceride: 200-499 mg/dLVery High Triglyceride: greater than or equal to 5OO mg/dL Cholesterol 115 <200 mg/dL [facility] Comment:Desirable Cholestero l: less than 200 mg/dLBorderline High Cholesterol: 200-239 mg/dLHigh Cholesterol: greater than 239 mg/dL LDL Cholesterol Calculated 47 <100 mg/dL [facility] Comment:Desirable LDL: less than 100 mg/dLNear Optimal/Above Optimal LDL: 110- 129 mg/dLBorderline High LDL: 130-159 mg/dLHigh LDL: 160-189 mg/dLVery High LDL: greater than or equal to 190 mg/dL HDL Cholesterol 50 >40 mg/dL [facility] Comment:Desirable HDL: great er than 40 mg/dL Note: This HDL assay may give artificially low results in patients with liver disease. Blood Venous blood specimen / Unknown 10/31/2023 8:06 AM EST 10/31/2023 11:33 AM EST us Carlita Cantu MD LAB BLOOD ORDERAB LES Final Result [facility] [address] [place] [address] [phone] * CT Lung Screening Low dose (07/28/2023 8:11 AM EST) Anatomical Region Laterality Modality Lung Computed Tomogra phy 07/28/2023 8:11 AM EST Narrative 08/02/2023 11:18 AM EST ? [facility] ?[address] ?[place] [address] ? CT Scan Report ? Signed ? Patient: Jt,Aren ?MR#: [id number] ?? [id number] ? : 1950 ?Acct:[id number] ? Age/Sex: 73 / M ?ADM Date: 07/28/23 ? Loc: HO.CT ? Attending Dr: Marycarmen Eric PA-C ? Ordering Physician: Marycarmen Eric PA-C ?? Date of Service: 07/28/23 ?? Procedure(s): CT lung screening ?? Accession Number(s): [id number] ? cc: Marycarmen Eric PA-C; Siobhan Goins ? EXAMINATION: ?? CT CHEST LOW-DOSE SCREENING WITHOUT CONTRAST ? ACCESSION: ?? [id number] ? HISTORY: ?? Asymptomatic patient meeting criteria for lung screening. Smoker ? PATIENT PACK-YEAR HISTORY: 69 ?? Current Smoker: Yes ?? If former smoker, years since quitting: NA ? COMPARISON: ?? 04/06/2022 ? TECHNIQUE: ?? Multidetector volumetric non-contrast CT imaging of the chest was ?? obtained on a [employer] [id number] 128 slice scanner using low dose screening ?? CT technique. Axial thin section 0.625 mm reformations in soft tissue ?? and lung windows were obtained. Sagittal and coronal reformations were ?? obtained. Axial MIP images were also created and reviewed. ? RECONSTRUCTED WIDTH: 1.25 mm x 1.25 mm ? TOTAL EXAM DLP: ?? 52 mGy-cm ? CTDIvol: ?? 1.40 mGy ? FINDINGS: ?? The representative government relations view is unremarkable ? LUNGS: There is stable calcified nodule in the right lower lobe, seen ?? on image 329 series 6, measured 0.3 cm. There is punctate right upper ?? lobe nodule seen on image 100 mL series 6 and 0.2 cm nodule in the ?? right upper lobe seen on image 166. There is subpleural 0.2 cm nodule ?? seen on image 214 series 6. ?? Lung nodules are well expanded without significant changes of emphysema ?? or COPD. ? MEDIASTINUM/LYMPHATIC STRUCTURES: No mediastinal, hilar or axillary ?? adenopathy or free fluid collection. ?? There is growing since previous study and September 2018 pericardial ?? lesion most likely cyst measured 3.3 x 2.6 x 3.1 cm, on CT scan from ?? 2018 lesion measured 2.8 x 2.3 x 1.[address] scan from March 2022 ?? lesion measured 3.2 x 2.4 x 2.9 cm lesion revealed attenuation of 6HU, ?? most likely cyst ? THYROID GLAND: Unremarkable ? CARDIOVASCULAR STRUCTURES: There is ectasia of ascending aorta, ?? measures 3.9 cm. Coronary artery calcifications present. There is no ?? pericardial effusion or cardiomegaly. ? PLEURA: There is no pleural effusion or pleural thickening ? VISUALIZED ABDOMEN: Included portions of the solid organs in the upper ?? abdomen unremarkable on noncontrast imaging. There is small hiatal ?? hernia. ? MUSCULO-SKELETAL: There is diffuse osteopenia. ? SPINAL COMPRESSION: Absent. ? CT/CT lung screening ?? IMPRESSION: ?? 1. ??No findings suspicious for malignancy/pulmonary nodule(s)/other. ?? 2. ??Lung-Rads -2 DESCRIPTOR: benign. ? PHYSICAL FINDINGS (S CATEGORY): ?? Finding: Pericardial cyst, slightly growing ?? Significance category: No clinically significant ? RECOMMENDATION: ?? Low dose lung CT. overall in 1 year. ? Visual estimate of coronary calcified plaque burden: None. However, ?? this exam cannot replace a dedicated cardiac CT calcium score for ?? accurate assessment. ? Dictated By: ?Mike Farfan MD ? Signed By: ?<Electronically signed by Mike Farfan MD in OV> ? 08/02/23 1114 ? DD/ ? TD/TT: ? Rpg Programmer Analyst: ? Procedure Note Ed[place], Image - 08/02/[address] [address] [address] Scan Report Signed Patient: Conrad Waters#: [id number] : 1950cct:[id number] Age/Sex: 73 / MADM Date: 07/28/23 Loc: HO.CT Attending Dr: Marycarmen Eric PA-C Ordering Physician: Marycarmen Eric PA-C Date of Service: 07/28/23 Procedure(s): CT lung screening Accession Number(s): [id number] cc: Marycarmen Eric PA-C; Siobhan Goins [employer]IN[employer] CUTTER EXAMINATION: CT CHEST LOW-DOSE SCREENING WITHOUT CONTRAST HISTORY: Asymptomatic patient meeting criteria for lung screening. Smoker PATIENT PACK-YEAR HISTORY: 69 Current Smoker: Yes If former smoker, years since quitting: NA COMPARISON: 04/06/2022 TECHNIQUE: Multidetector volumetric non-contrast CT imaging of the chest was obtained on a [id number] 128 slice scanner using low dose screening CT technique. Axial thin section 0.625 mm reformations in soft tissue and lung windows were obtained. Sagittal and coronal reformations were obtained. Axial MIP images were also created and reviewed. RECONSTRUCTED WIDTH: 1.25 mm x 1.25 mm TOTAL EXAM DLP: 52 mGy-cm CTDIvol: 1.40 mGy FINDINGS: The representative government relations view is unremarkable LUNGS: There is stable calcified nodule in the right lower lobe, seen on image 329 series 6, measured 0.3 cm. There is punctate right upper lobe nodule seen on image 100 mL series 6 and 0.2 cm nodule in the right upper lobe seen on image 166. There is subpleural 0.2 cm nodule seen on image 214 series 6. Lung nodules are well expanded without significant changes of emphysema or COPD. MEDIASTINUM/LYMPHATIC STRUCTURES: No mediastinal, hilar or axillary adenopathy or free fluid collection. There is growing since previous study and September 2018 pericardial lesion most likely cyst measured 3.3 x 2.6 x 3.1 cm, on CT scan from 2018 lesion measured 2.8 x 2.3 x 1.[address] scan from March 2022 lesion measured 3.2 x 2.4 x 2.9 cm lesion revealed attenuation of 6HU, most likely cyst THYROID GLAND: Unremarkable CARDIOVASCULAR STRUCTURES: There is ectasia of ascending aorta, measures 3.9 cm. Coronary artery calcifications present. There is no pericardial effusion or cardiomegaly. PLEURA: There is no pleural effusion or pleural thickening VISUALIZED ABDOMEN: Included portions of the solid organs in the upper abdomen unremarkable on noncontrast imaging. There is small hiatal hernia. MUSCULO-SKELETAL: There is diffuse osteopenia. SPINAL COMPRESSION: Absent. CT/CT lung screening IMPRESSION: 1. No findings suspicious for malignancy/pulmonary nodule(s)/other. 2. Lung-Rads -2 DESCRIPTOR: benign. PHYSICAL FINDINGS (S CATEGORY): Finding: Pericardial cyst, slightly growing Significance category: No clinically significant RECOMMENDATION: Low dose lung CT. overall in 1 year. Visual estimate of coronary calcified plaque burden: None. However, this exam cannot replace a dedicated cardiac CT calcium score for accurate assessment. Dictated By: Mike Farfan MD Signed By: <Electronically signed by Mike Farfan MD in OV> 08/02/23 1114 DD/ 0811 TD/TT: Rpg Programmer Analyst: [facility] External Provider IMG CT PROCEDURES Final Result from Last 3 Months or Most Recently Relevant to Health Maintenance Insurance [facility]IC[facility]ANTAGE [facility] Care Teams Dispatch Officer Relationship Specialty Start Date End Date Carlita Angela MD [address] [place] [id number] PCP - General Internal Medicine 02/22/23
--- OUTSIDE RECORDS SUMMARY | 2024-12-17 08:18 | XMS_ITS | Clinical Summary ---
Author Organization [address] [facility] Address [address] [place] [address] Phone Care Team Providers Care Dock Operations Supervisor Name Role Phone Physician, Pcp Unknown Primary Care Provider Ping vailable Allergies No known active allergies Medications ammonium lactate (AmLactin) 12 % lotion Apply topically if needed for dry skin. 400 g 2 4 07/03/20 25 Active Social History Tobacco Use Types Packs/Day Years Used Date Smoking Tobacco: Never Assessed Sex and Gender Information Value Date Recorded Sex Assigned at Not on file Legal Sex Male 11:05 AM EDT Gender Identity Not on file Sexual Orientation Not on file Last Filed Vital Signs Vital Sign Reading Time Taken Comments Blood Pressure - - Pulse - - Temperature - - Respiratory Rate - - Oxygen Saturation - - Inhaled Oxygen Concentration - - Weight 71.2 kg (157 lb) 07/03/2024 10:34 AM EST Height 165.1 cm (5' 5 ) 07/03/2024 10:34 AM EST Body Mass Index 26.13 07/03/2024 10:34 AM EST Plan of Treatment Health Maintenance Due Date Last Done Comments Diabetes: Annual GFR (Glomerular Filtration Rate) 1951 Diabetes: Annual Foot Exam 1961 Diabetes: Annual Retina Eye Exam 1961 RSV Immunization Adult Patients (1 - Risk 60-74 years 1-dose series) 2011 Zoster Vaccines (3 of 3) 08/13/2020 06/18/2020, 09/2014 Abdominal Aortic Aneurysm (AAA) Screen 03/22/2024 Colorectal Cancer Screening: Colonoscopy 03/22/2024 Depression Screening 03/22/2024 11/18/2022 Falls Risk Assessment 03/22/2024 Medicare Annual Wellness Visit 03/22/2024 Social Influencers of Health Screening 03/22/2024 Diabetes: Annual Urine Albumin-Creatinine Ratio (uACR) 07/03/2024 Hypertension/CHF/CAD Annual BMP Blood Test 07/03/2024 COVID-19 Vaccine (3 - season) 2024 06/19/2024, 09/28/2023 Diabetes: Blood Sugar Control Test (HGBA1C) 12/18/2024 06/19/2024 Cholesterol Screening (Lipid Panel) 10/30/2028 10/31/2023 DTaP,Tdap,and Td Vaccines (3 - Td or Tdap) 03/28/2032 03/28/2022, 01/19/2010 Hepatitis A Vaccines Aged Out 09/22/2010, 03/22/20 10 No longer eligible based on patient's age to complete this topic Hepatitis B Vaccines Completed 09/22/2010, 05/04/2010, 03/22/2010 Pneumococcal Vaccine: 50+ Years Completed 02/22/2023, 11/13/2017, 09/16/2016, Additional history exists Lung Cancer Screening (Low Dose CT) Discontinued 07/28/2023 Hepatitis C Screening Completed 10/31/2023 Influenza Vaccine Completed 06/19/2024, , 06/09/2022, Additional history exists HIB Vaccines Aged Out No longer eligi ble based on patient's age to complete this topic HPV Vaccines Aged Out No longer eligi ble based on patient's age to complete this topic IPV Vaccines Aged Out No longer eligi ble based on patient's age to complete this topic MMR Vaccines Aged Out No longer eligi ble based on patient's age to complete this topic Meningococcal ACWY Vaccine Aged Out N o longer eligible based on patient's age to complete this topic Meningococcal B Vaccine Aged Out No l onger eligible based on patient's age to complete this topic RSV Immunization Patients Under 20 months Aged Out No longer eligible based on patient's age to complete this topic Varicella Vaccines Aged Out No longer eligible based on patient's age to complete this topic Insurance [employer] [place] [address] Care Teams Dock Operations Supervisor Relationship Specialty Start Date End Date Physician, Pcp Unknown PCP - General 07/03/24
--- OUTSIDE RECORDS SUMMARY | 2024-12-17 08:18 | XMS_ITS | Encounter Summary ---
Author Organization [facility] Address [address] [place] [address] [address] [place] [address] Care Team Providers Care Telecommunications Administrator Name Role Phone Carlita Angela MD Primary Care Pro vider Reason for Visit * Reason Comments Med Refill Encounter Details Date Type Department Care Team (Late Contact Info) Description 04/26/2023 Refill [facility] MEDICINE [address] [place] [address] [phone] Siobhan Goins FNP [address] [place] [address] [place] [address] Social History Tobacco Use Types Packs/Day Years Used Date Smoking Tobacco: Every Day Cigarettes 0.8 58 Smokeless Tobacco: Never Alcohol Use Standard Drinks/Week Comments Yes 8 (1 standard drink = 0.6 oz pur e alcohol) Depression Answer Date Recorded Patient Health Questionnaire-9 Score 0 11/18/2022 Depression Answer Date Recorded Patient Health Questionnaire-2 Score 0 11/18/2022 Sex and Gender Information Value Date Recorded Sex Assigned at Male 06/27/2022 10:21 AM EDT Legal Sex Male 10:21 AM EDT Gender Identity Male 06/27/2022 10:21 AM EDT Sexual Orientation Straight 06/27/2022 10 :21 AM EDT documented as of this encounter Plan of Treatment Upcoming Encounters Date Type Department Care Team (Late Contact Info) Description 12/19/2024 9:00 AM EDT Office Visit [facility] MED[facility]INE [address] [place] [address] [phone] Carlita Angela MD [address] [place], [place] [phone] 01/03/2025 11:00 AM EDT Office Visit [facility] OPTOMETRY [address] [place] [address] Radha Singh, OD [address] [place], [place] [phone] documented as of this encounter Visit Diagnoses Not on filedocumented in this encounter Additional Health Concerns Assessment Noted Time PHQ-9 Depression Total Score: 0 11/19/19 9:08 AM EDT documented as of this encounter Care Teams Telecommunications Administrator Relationship Specialty Start Date End Date Carlita Angela MD [address] [place], [place] [phone] PCP - General Internal Medicine 02/22/23 documented as of this encounter
--- OUTSIDE RECORDS SUMMARY | 2024-12-17 08:18 | XMS_ITS | Encounter Summary ---
Author Organization [employer] Address [address] [facility] 7t [place] [address] Care Team Providers Care Trolley Car Operator Name Role Phone Carlita Angela MD Primary Care Pro vider Reason for Visit * Reason Comments Med Refill Encounter Details Date Type Department Care Team ([facility] st Contact Info) Description 12/11/2024 Refill [facility] MED[facility] [address] [place], [place] [phone] Carlita Angela MD [address] [place], [place] [phone] Cigarette nicotine dependence without complication; Chronic obstructive pulmonary disease, unspecified COPD type ([facility]) Social History Tobacco Use Types Packs/Day Years Used Date Smoking Tobacco: Every Day Cigarettes 0.8 58 Smokeless Tobacco: Never Comments:Started smoking at 15 y of age [...] your housing situation today? I have joel hi 12/10/[address] you li [...] Description 12/19/2024 9:00 AM EDT Office Visit [facility] MEDICINE [address] [place] [address] Carlita Angela MD [address] [place] [address] 01/03/2025 11:00 AM EDT Office Visit [facility] OPTOMETRY [address] [place] [address] Francisco, Radha, OD [address] [place] [address] documented as of this encounter Visit Diagnoses Diagnosis Cigarette nicotine dependence without complication Chronic obstructive pulmonary disease, unspecified COPD type (CMS/HCC) documented in this encounter Additional Health Concerns Assessment Noted Time PHQ-9 Depression Total Score: 0 11/19/19 23 9:08 AM EDT documented as of this encounter Care Teams Trolley Car Operator Relationship Specialty Start Date End Date Carlita Angela MD [address] [place], [place] [phone] PCP - General Internal Medicine 02/22/23 documented as of this encounter
[2024-12-17 11:45] LABS: Estimated Average Glucose 183 mg/dL; Total Hemoglobin (HGBA1C) 4156.3715 umol/L
[2024-12-17 12:02] LABS: Alanine Aminotransferase 18 U/L (0-40); Albumin Level 4.3 g/dL (3.5-5.0); Alkaline Phosphatase 61 U/L (39-117); Anion Gap 12 (12-20); Aspartate Amino Transferase 16 U/L (5-37); Bilirubin Total 0.4 mg/dL (0.0-1.0); Blood Urea Nitrogen 18 mg/dL (9-16); Carbon Dioxide 27 mmol/L (22-29); Chloride 105 mmol/L (96-108); Cholesterol 132 mg/dL (<200); Estimated Glomerular Filt Rate > 60; Glucose Random 207 mg/dL (60-115); HDL Cholesterol 51 mg/dL (>40); LDL Cholesterol Calculated 60 mg/dL (<100); Potassium 4.1 mmol/L (3.3-5.1); Sodium 140 mmol/L (135-145); Total Protein 6.8 g/dL (6.5-8.0); Triglycerides 108 mg/dL (<150)
[2024-12-17 12:26] LABS: Folate 14.1 ng/mL (> or = 4.0); Vitamin B12 535 pg/mL (200-900)
[2024-12-17 12:31] LABS: Creatinine Urine 27.38 mg/dL; Microalbum/Creatinine Ratio Ur 1676.4 ug/mg cr (<30)
== END 2024-12-17 08:07 | disposition home or self-care (01) ==
LOC: HO.HHCL 08:06
PROVIDERS: Visit Provider Student in an Organized Health Care Education/Training Program
DX: E11.319 Type 2 diabetes mellitus with unspecified diabetic retinopathy without macular edema (principal)
CPT/HCPCS: 36415; 80053; 80061; 82043; 82570; 82607; 82746; 83036

== ENCOUNTER → 2025-04-29 12:14 | Outpatient (REF) | payer MEDICARE, MEDICAID, SELFPAY ==
--- NOTE | 2025-04-29 12:17 | HM_ITS ---
Conclusion: 1. Patient was monitored for total period of 2 days and 21 hours 2. Baseline was normal sinus rhythm with average heart of 44 beats per minute next 3. Frequent bradycardia noted with heart rate below 60 beats per minute 81% of the time 4. Frequent Mobitz type 1 second-degree AV block noted with 5. 1 episode of 2 is to 1 av block noted at nighttime with heart rate at 35 beats per minute with narrow QRS complex which usually suggest block at the AV melva level although clinical correlation suggested 6. Frequent PACs noted with total burden of 3.8% 7. Occasional PVCs noted with 8 short runs of SVT, longest lasting 7 beats 8. No patient reported events MTDD
--- OUTSIDE RECORDS SUMMARY | 2025-04-29 13:29 | XMS_ITS | Encounter Summary ---
Author Organization [employer] Address [address] [facility] 7t [place] [address] Care Team Providers Care Order Processing Specialist Name Role Phone Carlita Angela MD Primary Care Pro vider Reason for Visit * Reason Comments Med Refill Encounter Details Date Type Department Care Team ([facility] st Contact Info) Description 02/20/2025 Refill [facility] MED[facility] [address] [place], [place] [phone] Carlita Angela MD [address] [place], [place] [phone] Seasonal allergies; Type 2 diabetes mellitus with retinopathy, without long-term current use of insulin, macular edema presence unspecified, unspecified laterality, unspecified retinopathy severity (CMS/HCC) Social History Tobacco Use Types Packs/Day Years Used Date Smoking Tobacco: Every Day Cigarettes 0.8 58 Smokeless Tobacco: Never Comments:Started smoking at 15 y of age ,smoking for 59 y. Now 10<--- 12 a day before 20 to 30 [...] Care Team (Late st Contact Info) Description 07/07/2025 9:30 AM EST Office Visit [facility] OPTOMETRY [address] [place], [place] [phone] Radha Singh, OD [address] [place] [address] documented as of this encounter Visit Diagnoses Diagnosis Seasonal allergies Allergic rhinitis, cause unspecified Type 2 diabetes mellitus with retinopathy, without long-term current use of insulin, macular edema presence unspecified, unspecified laterality, unspecified retinopathy severity (CMS/HCC) documented in this encounter Additional Health Concerns Assessment Noted Time PHQ-9 Depression Total Score: 0 11/19/19 23 9:08 AM EDT documented as of this encounter Care Teams Order Processing Specialist Relationship Specialty Start Date End Date Carlita Angela MD [address] [place] [address] PCP - General Internal Medicine 02/22/23 documented as of this encounter
--- OUTSIDE RECORDS SUMMARY | 2025-04-29 13:29 | XMS_ITS | Encounter Summary ---
Author Organization [employer] Address [address] [facility] [address] [place] [address] Care Team Providers Care Shotweld Operator Name Role Phone Carlita Angela MD Primary Care Pro vider Reason for Visit * Reason Comments Med Refill Encounter Details Date Type Department Care Team (Late Contact Info) Description 04/26/2023 Refill [facility] MED[facility]INE [address] [place], [place] [phone] Siobhan Goins FNP Social History Tobacco Use Types Packs/Day Years [...] Department Care Team (Late Contact Info) Description 07/07/2025 9:30 AM EST Office Visit [facility] OPTOMETRY [address] [place], [place] [phone] Radha Singh, OD [address] [place] [address] documented as of this encounter Visit Diagnoses Not on filedocumented in this encounter Additional Health Concerns Assessment Noted Time PHQ-9 Depression Total Score: 0 11/19/19 9:08 AM EDT documented as of this encounter Care Teams Shotweld Operator Relationship Specialty Start Date End Date Carlita Angela MD [address] [place] [phone] PCP - General Internal Medicine 02/22/23 documented as of this encounter
--- OUTSIDE RECORDS SUMMARY | 2025-04-29 13:29 | XMS_ITS | Encounter Summary ---
Author Organization [employer] Address [address] [facility] [address]t [place] [address] Care Team Providers Care Sap Ariba Consultant Name Role Phone Carlita Angela MD Primary Care Pro vider Reason for Referral * Consultation (Routine) - Closed Specialty Diagnoses / Procedures Referred By More t Referred To Contact Pharmacy Diagnoses Type 2 diabetes mellitus (CMS/HCC) Sary Gonzalez MD [address] [place] [address] Phone: tel: fax: Referral ID Status Reason Start Date Expiration Date V isits Requested Visits Authorized [id number] Closed Continuity of Care 12/24/2024 12/24/2025 6 6 Encounter Details Date Type Department Care Team ([facility] st Contact Info) Description 12/24/2024 Orders Only [facility] MEDICINE [address] [place] [phone] Sary Gonzalez MD [address] [place] [address] Type 2 diabetes mellitus (CMS/HCC) (Primary Dx) Social History Tobacco Use Types Packs/Day Years [...] Description 07/07/2025 9:30 AM EST Office Visit [facility] OPTOMETRY [address] [place] [address] Francisco, Radha, OD [address] [place] [address] Scheduled Referrals Name Type Priority Associated Diagnoses Orde r Schedule Referral to Pharmacy MTM Outpatient Referral Routine Type 2 diabetes mellitus (CMS/HCC) Ordered: 12/24/2024 documented as of this encounter Visit Diagnoses Diagnosis Type 2 diabetes mellitus (CMS/HCC)- Primary documented in this encounter Additional Health Concerns Assessment Noted Time PHQ-9 Depression Total Score: 0 11/19/19 9:08 AM EDT documented as of this encounter Care Teams Sap Ariba Consultant Relationship Specialty Start Date End Date Carlita Angela MD [address] [place] [phone] PCP - General Internal Medicine 02/22/23 documented as of this encounter
--- OUTSIDE RECORDS SUMMARY | 2025-04-29 13:29 | XMS_ITS | Clinical Summary ---
Author Organization [address] [facility] Address [address] [place] [address] Phone Care Team Providers Care Strategic Planning Specialist Name Role Phone Physician, Pcp Unknown Primary [...] Screen 03/22/2024 Colorectal Cancer Screening: Colonoscopy 03/22/2024 Falls Risk Assessment 03/22/2024 Medicare Annual Wellness Visit 03/22/2024 Social Influencers of Health Screening 03/22/2024 Diabetes: Annual Urine Albumin-Creatinine Ratio (uACR) 07/03/2024 Hypertension/CHF/CAD Annual BMP Blood Test 07/03/2024 Depression Screening 08/28/2024 Diabetes: Blood Sugar Control Test (HGBA1C) 12/18/2024 06/19/2024 COVID-19 Vaccine (3 - season) 2025 06/19/2024, 09/28/2023 Influenza Vaccine (#1) 2025 , 08/04/2023, 06/09/2022, Additional history exists Cholesterol Screening (Lipid Panel) 10/30/2028 10/31/2023 DTaP,Tdap,and Td Vaccines (3 - Td or Tdap) 03/28/2032 03/28/2022, 01/19/2010 Hepatitis A Vaccines Completed 09/22/2010, 03/22/20 Hepatitis B Vaccines Completed 09/22/2010, 05/04/2010, 03/22/2010 Pneumococcal Vaccine: 50+ Years Completed 02/22/2023, 11/13/2017, 09/16/2016, Additional history exists Lung Cancer Screening (Low Dose CT) Discontinued 07/28/2023 Hepatitis C Screening Completed 10/31/2023 HIB Vaccines Aged Out No longer eligi [...] complete this topic Insurance [employer] MEDICARE Care Teams Strategic Planning Specialist Relationship Specialty Start Date End Date Physician, Pcp Unknown PCP - General 07/03/24
--- OUTSIDE RECORDS SUMMARY | 2025-04-29 13:29 | XMS_ITS | Clinical Summary ---
Author Organization [employer] Address [address] [facility] [address] [place] [address] Care Team Providers Care Senior Control Systems Engineer Name Role Phone Carlita Angela MD Primary Care Pro vider Allergies No known active allergies Medications Skin Protectants, Misc. (eucerin) cream Apply topically every 12 (twelve) hours. 01/16/20 21 Active OneTouch Ultra Test test stripIndications :Type 2 diabetes mellitus with retinopathy, without long-term current use of insulin, macular edema presence unspecified, unspecified laterality, unspecified retinopathy severity (CMS/HCC) TEST BLOOD SUGAR TWICE DAILY 100 strip 11 07/01/20 24 Active Lancets (OneTouch Delica Plus [id number]) misc TEST BLOOD SUGAR TWICE DAILY 100 each 11 07/19/20 24 Active Alcohol Swabs (Alcohol Prep) 70 % pads USE DIRECTED TWICE DAILY NEEDED 100 each 3 10/02/19 25 Active ezetimibe (Zetia) 10 MG tablet TAKE 1 TABLET BY MOUTH AT BEDTIME 90 tablet 1 10/10/19 25 Active cholecalciferol (D3-1000) 25 MCG (1000 UT) capsule TAKE 1 CAPSULE BY MOUTH EVERY MORNING 90 capsule 1 10/10/19 25 Active folic acid (Folvite) 1 MG tabletIndication s:Acute reaction to stress TAKE 1 TABLET BY MOUTH EVERY MORNING 90 tablet 1 10/10/19 25 Active ammonium lactate (Lac-Hydrin) 12 % lotion APPLY TO THE AFFECTED AREA(S) NEEDED FOR DRY SKIN Active tiotropium (Spiriva HandiHaler) 18 MCG inhalation capsuleIndicatio ns:Chronic obstructive pulmonary disease, unspecified COPD type (CMS/HCC),[employer] tte nicotine dependence without complication USE 1 CAPSULE FOR INHALATION ONCE A DAY DO NOT SWALLOW CAPSULE 30 capsule 11 12/20/19 25 Active losartan-hydroCH LOROthiazide (Hyzaar) 100-25 MG tablet TAKE 1 TABLET BY MOUTH EVERY MORNING 90 tablet 1 01/17/20 25 Active Jardiance 25 MGIndications:Ty pe 2 diabetes mellitus with retinopathy, without long-term current use of insulin, macular edema presence unspecified, unspecified laterality, unspecified retinopathy severity (CMS/HCC) TAKE 1 TABLET BY MOUTH EVERY MORNING 90 tablet 1 01/17/20 25 Active Aspirin Low Dose 81 MG EC tabletIndication s:Pulmonary nodules TAKE 1 TABLET BY MOUTH AT BEDTIME 90 tablet 1 02/11/20 25 Active metFORMIN (Glucophage) 1000 MG tablet TAKE 1 TABLET BY MOUTH TWICE DAILY IN THE MORNING AND IN THE EVENING 180 tablet 1 02/11/20 25 Active amLODIPine (Norvasc) 10 MG tablet TAKE 1 TABLET BY MOUTH EVERY MORNING 90 tablet 1 02/11/20 25 Active glipiZIDE (Glucotrol) 5 MG tabletIndication s:Type 2 diabetes mellitus with retinopathy, without long-term current use of insulin, macular edema presence unspecified, unspecified laterality, unspecified retinopathy severity (CMS/HCC) TAKE 1 TABLET BY MOUTH EVERY MORNING WITH FOOD 90 tablet 1 02/11/20 25 Active cyanocobalamin (Vitamin B-12) 500 MCG tablet TAKE 1 TABLET BY MOUTH EVERY MORNING (MONDAY, MONDAY, MONDAY) 12 tablet 2 02/12/20 25 Active pregabalin (Lyrica) 50 MG capsuleIndicatio ns:Fibromyalgia TAKE 1 CAPSULE BY MOUTH TWICE DAILY IN THE MORNING AND AT BEDTIME 60 capsule 2 02/21/20 25 Active amitriptyline (Elavil) 10 MG tablet TAKE 1 TABLET BY MOUTH AT BEDTIME 30 tablet 2 02/21/20 25 Active loratadine (Claritin) 10 MG tabletIndication s:Seasonal allergies TAKE 1 TABLET BY MOUTH EVERY MORNING 90 tablet 03/18/20 25 Active atorvastatin (Lipitor) 80 MG tablet TAKE 1 TABLET BY MOUTH AT BEDTIME 90 tablet 04/10/20 25 Active Januvia 50 MG tabletIndication s:Type 2 diabetes mellitus with retinopathy, without long-term current use of insulin, macular edema presence unspecified, unspecified laterality, unspecified retinopathy severity (CMS/HCC) TAKE 1 TABLET BY MOUTH EVERY MORNING 90 tablet 04/10/20 Active SITagliptin (Januvia) 50 MG tabletIndication s:Type 2 diabetes mellitus with retinopathy, without long-term current use of insulin, macular edema presence unspecified, unspecified laterality, unspecified retinopathy severity (CMS/HCC) Take 1 tablet (50 mg) by mouth in the morning. 90 tablet 01/01/20 25 025 Discontinued atorvastatin (Lipitor) 80 MG tablet Take 1 tablet (80 mg) by mouth at bedtime. 90 tablet 01/17/20 25 025 Discontinued Active Problems Problem Noted Date Diagnosed Date Lower extremity edema 12/19/2024 Albuminuria 06/20/2024 Tobacco use 09/29/2023 Alcohol abuse [...] + Ventolin DAPHNE use PRN Atherosclerosis of [place] co ronary artery of [place] heart without angina pectoris 02/22/2023 Overview (02/22/2023): [...] Apr 2023 Heart block 02/22/2023 Overview (02/22/2023): [facility] Cardiology appt 01/11/23: Cardiac studies reviewed. EKG, [...] daily in the AM with food Declines outreach educator and diet changes Start Trulicity 0.75mg/0.5ml weekly (02/22/23) Check BG daily fasting Microalbumin 11/18/22; moderately increased. Continue Jardiance Lipid panel: 11/18/22; Triglycerides 167 Foot exam: 05/07 sites sensation. Declines podiatry care. Pt cares for his own nails. Dry skin on feet and tinea pedis Tdap: 03/28/22 PCV: 11/13/2017. Due for PCV 20; received today AVERY/ARB: Losartan 100mg Statin: Atorvastatin 80mg Assessment & Plan (02/22/2023 9:53 AM EDT): A1c 02/22/23 9.7; increased from 11/18/22 Glucose 157 today Discussed avoiding sugar in coffee, cakes, and limiting rice. Declines outreach educator and diet changes Start Trulicity 0.75mg/0.5ml weekly (02/22/23) Followup 3 months with new PCP LTBI (latent tuberculosis infection) Resolved Problems Problem Noted Date Diagnosed Date Resolved Date Smoker 06/29/2015 02/22/2023 Encounters Date Type Department Care Team Description 04/09/2025 Refill [facility] [address] [place] [address] Carlita Angela MD Type 2 diabetes mellitus with retinopathy, without long-term current use of insulin, macular edema presence unspecified, unspecified laterality, unspecified retinopathy severity (CMS/HCC) 03/17/2025 Refill [facility] [address] [place] [address] Carlita Angela MD Seasonal allergies 03/03/2025 Telephone [facility] [address] [place] [address] Carlita Angela MD chart prep 02/20/2025 Telephone [facility] [address] [place] [address] Carlita Angela MD No Show ( Pt no show to 9 AM follow up appointment with letter will be sent. ) 02/20/2025 Refill [facility] [address] [place] [address] Carlita Angela MD Seasonal allergies; Type 2 diabetes mellitus with retinopathy, without long-term current use of insulin, macular edema presence unspecified, unspecified laterality, unspecified retinopathy severity (CMS/HCC) 02/20/2025 Refill [facility] [address] [place] [address] Leola Sauer MD Fibromyalgia 02/11/2025 Refill [facility] [address] [place] [address] Leola Sauer MD 02/09/2025 Refill [facility] [address] [place], [place] [phone] Leola Sauer MD Pulmonary nodules; Type 2 diabetes mellitus with retinopathy, without long-term current use of insulin, macular edema presence unspecified, unspecified laterality, unspecified retinopathy severity (CMS/HCC) 02/09/2025 Refill [facility] [address] [place] [address] Carlita Angela MD Type 2 diabetes mellitus with retinopathy, without long-term current use of insulin, macular edema presence unspecified, unspecified laterality, unspecified retinopathy severity (CMS/HCC) from Last 3 Months Immunizations Immunization Administration Dates Next Due Hep A, Adult 09/22/2010,03/22/2010 Hep B, adult 09/22/2010,05/04/2010,03/22/2010 Influenza High-dose Quadriva lent Preservative Free 08/04/2023,06/09/2022,06/02/2020 Influenza injectable quadriv alent IIV4 with preservative 05/18/2016,06/29/2015 Influenza injectable quadriv alent preservative free 07/16/2021 Influenza, High Dose Seasona l, Preservative Free 06/19/2024,07/15/2019,06/27/2018 Influenza, IIV3, injectable 07/23/2014, 1 Influenza, Split (incl. gregoria fied surface antigen) 06/06/2013,05/07/2012 Pfizer Covid-19 Vaccine 12+ 12/19/2024, 4,09/28/2023 Pneumococcal Conjugate PCV 13 09/16/2016 Pneumococcal Conjugate PCV 20 02/22/2023 Pneumococcal Polysaccharide PPSV23 11/13/2017, RSV Bivalent 12/26/2024 TD (adult), 2 Lf tetanus tox oid, preservative free, adsorbed 03/28/2022 Tdap 01/19/2010 Zoster, Recombinant 12/26/2024,06/18/2020 Zoster, live 06/29/2015 Family History Medical History [...] Sign Reading Time Taken Comments Blood Pressure 158/60 12/26/2024 9:15 AM EDT Pulse 71 12/19/2024 8:53 AM EDT Temperature 36.5 C (97.7 F) 12/19/2024 8:53 AM EDT Respiratory Rate 18 12/19/2024 8:53 AM EDT Oxygen Saturation 98% 12/19/2024 8:53 AM EDT Inhaled Oxygen Concentration - - Weight 74.5 kg (164 lb 3.2 oz) 12/19/2024 8:53 A M EDT Height 165.1 cm (5' 5 ) 12/19/2024 8:53 AM EDT Body Mass Index 27.32 12/19/2024 8:53 AM EDT Plan of Treatment Upcoming Encounters Date Type Department Care Team (Late st Contact Info) Description 07/07/2025 9:30 AM EST Office Visit [facility] [address] [place] [address] Francisco, Radha, OD [address] [place] [address] Health Maintenance Due Date Last Done Comments CT Colonography 1950 Colonoscopy 1950 Colorectal Cancer Screening 1950 FIT DNA/Cologuard 1950 FIT 1950 FOBT 1950 Sigmoidoscopy 1950 Alcohol/Substance Use Screening 1963 Depression Screening 11/19/2023 11/18/2022, 11/19/19 Diabetes: Foot Exam 12/22/2023 12/21/2022, 12/21/2022, 12/21/2022, Additional history exists Lung Cancer Screening 07/28/2024 07/28/2023 Diabetes: Hemoglobin A1C 03/18/2025 025, 06/19/2024, 10/31/2023, Additional history exists Influenza Vaccine (#1) 2025 , 08/04/2023, 06/09/2022, Additional history exists SDOH Screening 12/10/2025 12/10/2024 Diabetes: Urine Protein Screening 12/17/2025 12/17/2024, 10/31/2023, 11/18/2022, Additional history exists Lipid Panel 12/17/2025 12/17/2024, 03/0 12/2023, 11/18/2022, Additional history exists Tobacco Screening 12/19/2025 12/19/2024 Eye Exam 01/03/2026 01/03/2025, 05/0 04/2025, 01/03/2025, Additional history exists DTaP/Tdap/Td Vaccines (3 - Td or Tdap) 03/28/2032 03/28/2022, 01/19/2010 Hepatitis A Vaccines Aged Out 09/22/2010, 03/22/20 10 No longer eligible based on patient's age to complete this topic Hepatitis B Vaccines Completed 09/22/2010, 05/04/2010, 03/22/2010 Pneumococcal Vaccine: 50+ Years Completed 02/22/2023, 11/13/2017, 09/16/2016, Additional history exists Hepatitis C Screening Completed 10/31/2023, 023 COVID-19 Vaccine Completed 12/19/2024, , 09/28/2023, Additional history exists RSV Patients and Patients Aged 60 years or older Completed 12/26/2024 Zoster Vaccines Completed 12/26/2024, 05/29, 06/29/2015 HIB Vaccines Aged Out No longer eligi [...] Procedure Name Priority Date/Time Associated Diagnosis Comments ALBUMIN, RANDOM URINE W/CREATININE Routine 12/17/2024 8:08 AM EDT Type 2 diabetes mellitus with retinopathy, without long-term current use of insulin, macular edema presence unspecified, unspecified laterality, unspecified retinopathy severity (CMS/HCC) HEMOGLOBIN A1C Routine 12/17/2024 8:08 AM EDT Type 2 diabetes mellitus with retinopathy, without long-term current use of insulin, macular edema presence unspecified, unspecified laterality, unspecified retinopathy severity (CMS/HCC) LIPID PANEL, STANDARD Routine 12/17/2024 8:08 AM EDT Type 2 diabetes mellitus with retinopathy, without long-term current use of insulin, macular edema presence unspecified, unspecified laterality, unspecified retinopathy severity (CMS/HCC) HEPATITIS C AB W/REFL TO HCV RNA, QN, PCR Routine 10/31/2023 8:06 AM EST Annual physical exam LDCT LUNG SCREENING Routine 07/28/2023 8 :11 AM EST from Last 3 Months or Most Recently Relevant to Health Maintenance Results * (ABNORMAL) Albumin, Random Urine W/Creatinine (12/17/2024 8:08 AM EDT) Creatinine, Urine 27.38 mg/dL [facility] Microalbumin Urine 459.0 mg/L [facility] Microalbum Creatinine Ratio Ur 1,676.4(H ) <30 ug/mg cr [facility] Comment:Albumin/Creatinine R atio Reference Ranges: Normal: < 30 ug/mg creatinine Microalbuminuria: 30 - 300 ug/mg creatinineClinical Albuminuria: > 300 ug/mg creatinine Urine (Urine, Random) 12/17/2024 8:08 AM EDT 12/17/2024 11:18 AM EDT us Carlita Cantu MD LAB URINE ORDERAB LES Final Result Performing Organization Address City/[facility]/ZIP Co de Phone Number [facility] [address] [place] [phone] * (ABNORMAL) Hemoglobin A1c (12/17/2024 8:08 AM EDT) Hemoglobin A1c 8.0(H) <6.0 % [facility] Comment:Hemoglobin A1C Refer ence Range Adults: 4.8 - 6.0 % Non diabetic: < 6.0 % Goal: < 7.0 %Additional Action Suggested: > 8.0 %Note: Hemoglobin A1c results are invalid for patients with abnormal amounts of HbF. Blood transfusions may impact the HbA1c concentration in the patient sample. Estimated Average Glucose 183 mg/dL [facility] Comment:eAG = Estimated ave rage glucose which is %A1C expressed asaverage glucose, using the formula of the P7Q-[id number] Glucose study (ADAG), Diabetes Care, Vol.31,#8,2007 Blood Venous blood specimen / Unknown 12/17/2024 8:08 AM EDT 12/17/2024 11:16 AM EDT us Carlita Cantu MD LAB BLOOD ORDERAB LES Final Result Performing Organization Address [facility]/ZIP Co de Phone Number [facility] [address] [place] [phone] * Lipid Panel, Standard (12/17/2024 8:08 AM EDT) Triglycerides 108 <150 mg/dL [facility] Comment:Desirable Triglyceri de: less than 150 mg/dLBorderline High Triglyceride 150-199 mg/dLHigh Triglyceride: 200-499 mg/dLVery High Triglyceride: greater than or equal to 5OO mg/dL Cholesterol 132 <200 mg/dL [facility] Comment:Desirable Cholestero l: less than 200 mg/dLBorderline High Cholesterol: 200-239 mg/dLHigh Cholesterol: greater than 239 mg/dL LDL Cholesterol Calculated 60 <100 mg/dL [facility] Comment:Desirable LDL: less than 100 mg/dLNear Optimal/Above Optimal LDL: 110- 129 mg/dLBorderline High LDL: 130-159 mg/dLHigh LDL: 160-189 mg/dLVery High LDL: greater than or equal to 190 mg/dL HDL Cholesterol 51 >40 mg/dL [facility] Comment:Desirable HDL: great er than 40 mg/dL Note: This HDL assay may give artificially low results in patients with liver disease. Blood Venous blood specimen / Unknown 12/17/2024 8:08 AM EDT 12/17/2024 11:16 AM EDT us Carlita Cantu MD LAB BLOOD ORDERAB LES Final Result Performing Organization Address City/[facility]/ZIP Co de Phone Number [facility] [address] [place] [phone] * Hepatitis C Antibody with Reflex to HCV, RNA, Quantitative, Real-Time PCR (10/31/2023 8:06 AM EST) Hepatitis C Antibody Nonreactive Nonreactive [facility] Comment:Antibodies to HCV no t detected; does not exclude early acuteHCV infection. Blood Venous blood specimen / Unknown 10/31/2023 8:06 AM EST 10/31/2023 11:33 AM EST us Carlita Cantu MD LAB BLOOD ORDERAB LES Final Result Performing Organization Address City/[facility]/ZIP Co de Phone Number [facility] [address] [place] [phone] * CT Lung Screening Low dose (07/28/2023 8:11 AM EST) Anatomical Region Laterality Modality Lung Computed Tomogra phy 07/28/2023 8:11 AM EST Narrative 08/02/2023 11:18 AM EST [address] [address] [address] Scan Report Signed Patient: Aren Waters MR#: [id number] : 1950 Acct:[id number] Age/Sex: 73 / M ADM Date: 07/28/23 Loc: HO.CT Attending Dr: Marycarmen Eric PA-C Ordering Physician: Marycarmen Eric PA-C Date of Service: 07/28/23 Procedure(s): CT lung screening Accession Number(s): [id number] cc: Marycarmen Eric PA-C; Siobhan Goins SUPERINTENDENT DIVISION EXAMINATION: CT CHEST LOW-DOSE SCREENING WITHOUT CONTRAST HISTORY: Asymptomatic patient meeting criteria for lung screening. Smoker PATIENT PACK-YEAR HISTORY: 69 Current Smoker: Yes If former smoker, years since quitting: NA COMPARISON: 04/06/2022 TECHNIQUE: Multidetector volumetric non-contrast CT imaging of the chest was obtained on a [id number] 128 slice scanner using low dose screening CT technique. Axial thin section 0.625 mm reformations in soft tissue and lung windows were obtained. Sagittal and coronal reformations were obtained. Axial MIP images were also created and reviewed. RECONSTRUCTED WIDTH: 1.25 mm x 1.25 mm TOTAL EXAM DLP: 52 mGy-cm CTDIvol: 1.40 mGy FINDINGS: The armed security professional view is unremarkable LUNGS: There is stable [...] in OV> 08/02/23 1114 DD/ 0811 TD/TT: Machine Pan Greaser: Procedure Note Donotuseinterpreter, Image - 08/02/[address] [place] [address] [address] Scan Report Signed Patient: Conrad Waters#: [id number] : 1950cct:[id number] Age/Sex: 73 / MADM Date: 07/28/23 Loc: HO.CT Attending Dr: Marycarmen Eric PA-C Ordering Physician: Marycarmen Eric PA-C Date of Service: 07/28/23 Procedure(s): CT lung screening Accession Number(s): [id number] cc: Marycarmen Eric PA-C; Siobhan Goins SUPERINTENDENT DIVISION EXAMINATION: CT CHEST LOW-DOSE SCREENING WITHOUT CONTRAST HISTORY: Asymptomatic patient meeting criteria for lung screening. Smoker PATIENT PACK-YEAR HISTORY: 69 Current Smoker: Yes If former smoker, years since quitting: NA COMPARISON: 04/06/2022 TECHNIQUE: Multidetector volumetric non-contrast CT imaging of the chest was obtained on a Skout [id number] 128 slice scanner using low dose screening CT technique. Axial thin section 0.625 mm reformations in soft tissue and lung windows were obtained. Sagittal and coronal reformations were obtained. Axial MIP images were also created and reviewed. RECONSTRUCTED WIDTH: 1.25 mm x 1.25 mm TOTAL EXAM DLP: 52 mGy-cm CTDIvol: 1.40 mGy FINDINGS: The armed security professional view is unremarkable LUNGS: There is stable [...] in OV> 08/02/23 1114 DD/ 0811 TD/TT: Machine Pan Greaser: [facility] External Provider IMG CT PROCEDURES Final Result from Last 3 Months or Most Recently Relevant to Health Maintenance Insurance [facility] MEDICARE ADVANTAGE HMO [facility] STANDARD Care Teams Senior Control Systems Engineer Relationship Specialty Start Date End Date Carlita Angela MD [address] [place] [phone] PCP - General Internal Medicine 02/22/23
== END ==
LOC: HO.CARD 12:14
PROVIDERS: PCP Student in an Organized Health Care Education/Training Program; Visit Provider Internal Medicine
DX: I44.1 Atrioventricular block, second degree (principal)
CPT/HCPCS: 93242

== ENCOUNTER → 2025-04-29 12:17 | Outpatient (BNV) | payer MEDICARE, MEDICAID, SELFPAY | PROVIDERS: PCP Student in an Organized Health Care Education/Training Program; Visit Provider Internal Medicine Cardiovascular Disease | DX: I49.3 Ventricular premature depolarization (principal); I49.1 Atrial premature depolarization | CPT/HCPCS: 93244 ==

== ENCOUNTER 2025-05-15 12:40 | Outpatient (AMB) | payer MEDICARE, MEDICAID, SELFPAY ==
[2025-05-15 12:42] VITALS: BP 140/68; PULSE 60; BMI 26.8
--- NOTE | 2025-05-15 12:42 | MHC.OFFVIS ---
Vital Signs 05/15/25 12:42 Height 5 ft 5 in Weight 160 lb 14.999 oz BMI 26.8 BP 140/68 H Blood Pressure Location Lt brachial Position Sitting Pulse 60 Pulse Source Pulse Oximeter Intake Visit Reasons: routine f/up testings Electronic Masking System Operator Required: Yes Electronic Masking System Operator Name: ALEM [id number] Allergies No Known Allergies Allergy (Verified 09/18/23 10:47) Medication List - Last Reconciled 05/15/25 by Joo Forde MD amitriptyline 25 mg PO BEDTIME amlodipine 10 mg PO QAM aspirin 81 mg PO BEDTIME atorvastatin 80 mg PO BEDTIME cholecalciferol (vitamin D3) (Vitamin D3) 25 mcg PO QAM cyanocobalamin (vitamin B-12) 500 mcg PO QAM empagliflozin (Jardiance) 25 mg PO QAM ezetimibe 10 mg PO QPM folic acid 1 mg PO QAM glipizide 5 mg PO QAM losartan 100 mg PO QAM metformin 1,000 mg PO BID pregabalin 50 mg PO HPI Comments Details: Aren returns for follow-up regarding conduction system disease. He has got a Mobitz type one second-degree heart block. Also has a history of asymptomatic pericardial cyst. Many comorbidities including diabetes, hypertension, dyslipidemia. Smoker. He states for the most part he is doing okay but just gets fatigued and tired. Nonspecific leg discomfort. No clear syncopal episodes. [facility] Medical History (Updated 07/15/24 @ 14:10 by BAIRON Garza) History of latent tuberculosis Nicotine dependence, cigarettes, uncomplicated Pericardial cyst Atherosclerotic cardiovascular disease Other and unspecified hyperlipidemia Essential hypertension Type 2 diabetes mellitus with unspecified complications Surgical History Hx of cholecystectomy Family History Mother Cancer Father No problems noted. Social History Alcohol intake: current Alcohol intake frequency: a few times a week Patient Tobacco Use Status: Current everyday Tobacco user Tobacco use type: Cigarette Cigarette Packs Per Day: 1 Cigarettes Per Day: 14 Review of Systems Const Denies weakness ENT Denies dizziness Card Denies chest pain, Denies chest pain with activity, Denies syncope, Denies rapid heart rate, Denies pedal edema, Denies edema, Denies leg edema, Denies lightheadedness, Denies palpitations, Denies dyspnea, Denies dyspnea on exertion and Denies orthopnea Resp Denies cough, Denies dyspnea and Denies dyspnea on exertion GI Denies hematochezia and Denies change in stool character Musc Denies abnormal gait, Denies muscle cramps, Denies muscle weakness, Denies numbness, Denies radiating pain into limb and Denies tingling Neuro Denies abnormal gait, Denies dizziness, Denies syncope, Denies numbness, Denies tingling and Denies weakness Endo Denies palpitations Physical Exam Vital Signs: Last Vital Signs Pulse 60 05/15/25 12:42 BP 140/68 H 05/15/25 12:42 BMI result Body Mass Index 26.8 Const General: comfortable and no acute distress Orientation/consciousness: patient oriented x3 HEENT Other: Unremarkable Head: Yes normal to inspection Neck Neck: Yes normal visual inspection Chest Chest palpation & inspection: normal inspection of the chest Resp Auscultation: clear to auscultation bilaterally Cardio Palpation: normal PMI Heart sounds: S1 normal heart sound present, S2 normal heart sound present, no gallops, no murmurs and no rubs GI Palpation (GI): Soft to palpation Back/Spine/Pelvis Other: unremarkable Skin General skin exam: no rashes or lesions noted Neuro General: patient oriented x3 Extrem General: Yes normal to inspection Psych Mental Status: mental status grossly normal Assessment & Plan Assessment & Plan (1) Heart block: Code(s): I45.9 - Conduction disorder, unspecified Category: Medical (2) Type 2 diabetes mellitus with unspecified complications: Code(s): E11.8 - Type 2 diabetes mellitus with unspecified complications Category: Medical (3) Essential hypertension: Code(s): I10 - Essential (primary) hypertension Category: Medical (4) Other and unspecified hyperlipidemia: Code(s): E78.5 - Hyperlipidemia, unspecified Category: Medical (5) Atherosclerotic cardiovascular disease: Code(s): I25.10 - Atherosclerotic heart disease of [place] coronary artery without angina pectoris Category: Medical (6) Left atrial enlargement: Code(s): I51.7 - Cardiomegaly Category: Medical (7) Pericardial cyst: Code(s): Q24.8 - Other specified congenital malformations of heart Category: Medical Plan Cardiac studies reviewed. Baseline EKG shows Mobitz type 1 second-degree heart block. Echocardiogram with low-normal LVEF 53%. Slightly diminished global longitudinal strain. Left atrium appeared severely dilated. In the Holter monitor, underlying rhythm is sinus with an average rate of only 44/Min. About 81% of the time, rate < 60/Min. There is Mobitz type one second-degree AV block and there was also multiple instances of 2:1 appearing AV blocks strips, including during daytime hours. Rare PVCs with some short runs. In the exercise stress test, he did 5.1 METS. Blunted heart rate response and he reached only 72% of max predicted heart rate. No EKG evidence of ischemia. He has some shortness of breath but no chest discomfort. Had isolated PVCs/ventricular couplets and 5 beat run. Mobitz type 1 second-degree findings throughout. Perfusion component without any significant findings. In the CT chest, coronary artery calcification described. Ascending aortic size 3.9 cm. Pericardial cyst described with dimension of 3.3/2.6/3.1 cm. In 2021, measured 3.2/2.4/2.9 cm. Overall, multiple medical comorbidities, second-degree heart block, coronary calcifications, pericardial cyst but no overt symptoms apart from fatigue. With regard to the heart block, we will discuss with EP regarding indication for pacemaker. He has got no overt symptoms like syncope but just as nonspecific tiredness. With regard to the pericardial cyst, no specific management as he is asymptomatic. When he is getting chest CT scans for lungs, this can also be followed. Unless any major increase in size, most likely conservative care. Otherwise, mainly risk factor modification of diabetes, hypertension, dyslipidemia and smoking cessation. We will discuss with EP regarding further plan about pacemaker. We will follow up in about 3 months' time. Coding Level of Care Code Est Pt Level 4 (71640) Complex EM visit Add On G2211 Diagnoses Heart block I45.9 Type 2 diabetes mellitus with unspecified complications E11.8 Essential hypertension I10 Other and unspecified hyperlipidemia E78.5 Atherosclerotic cardiovascular disease I25.10 Left atrial enlargement I51.7 Pericardial cyst Q24.8
--- OUTSIDE RECORDS SUMMARY | 2025-05-15 14:45 | XMS_ITS | Encounter Summary ---
Author Organization [employer] Address [address] [facility] [address] [place] [address] Care Team Providers Care Polymerization Oven Operator Name Role Phone Carlita Angela MD Primary Care Pro vider Reason for Visit * Reason Comments Med Refill Encounter Details Date Type Department Care Team (Late Contact Info) Description 04/26/2023 Refill [facility] [address] [place], [place] [phone] Siobhan Goins FNP Social History Tobacco Use [...] Description 07/07/2025 9:30 AM EST Office Visit [facility] [address] [place], [place] [phone] Radha Singh, OD [address] [place] [address] documented as of this encounter Visit Diagnoses Not on filedocumented in this encounter Additional Health Concerns Assessment Noted Time PHQ-9 Depression Total Score: 0 11/19/19 9:08 AM EDT documented as of this encounter Care Teams Polymerization Oven Operator Relationship Specialty Start Date End Date Carlita Angela MD [address] [place] [id number] PCP - General Internal Medicine 02/22/23 documented as of this encounter
--- OUTSIDE RECORDS SUMMARY | 2025-05-15 14:45 | XMS_ITS | Encounter Summary ---
Author Organization [employer] Address [address] [facility] [address] [place] [address] Care Team Providers Care Label Sewer Name Role Phone Carlita Angela MD Primary Care Pro vider Reason for Visit * Reason Comments Med Refill Encounter Details Date Type Department Care Team ([facility] st Contact Info) Description 02/20/2025 Refill [facility] [address] [place], [place] [phone] Carlita Angela MD [address] [place], [place] [phone] Seasonal allergies; Type 2 diabetes mellitus with [...] Description 07/07/2025 9:30 AM EST Office Visit [facility] [address] [place], [place] [phone] Radha Singh, OD [address] [place] [address] documented as of this encounter Visit Diagnoses Diagnosis Seasonal allergies Allergic rhinitis, cause unspecified Type 2 diabetes mellitus with retinopathy, without long-term current use of insulin, macular edema presence unspecified, unspecified laterality, unspecified retinopathy severity (CMS/HCC) documented in this encounter Additional Health Concerns Assessment Noted Time PHQ-9 Depression Total Score: 0 11/19/19 23 9:08 AM EDT documented as of this encounter Care Teams Label Sewer Relationship Specialty Start Date End Date Carlita Angela MD [address] [place] [phone] PCP - General Internal Medicine 02/22/23 documented as of this encounter
--- OUTSIDE RECORDS SUMMARY | 2025-05-15 14:45 | XMS_ITS | Encounter Summary ---
Author Organization [employer] Address [address] [facility] [address] [place] [address] Care Team Providers Care Hearing Stenographer Name Role Phone Carlita Angela MD Primary Care Pro vider Reason for Referral * Consultation (Routine) - Closed Specialty Diagnoses / Procedures Referred By More t Referred To Contact Pharmacy Diagnoses Type 2 diabetes mellitus (CMS/HCC) Sary Gonzalez MD [address] [place] [phone] Phone: tel: fax: Referral ID Status Reason Start Date Expiration Date V isits Requested Visits Authorized [id number] Closed Continuity of Care 12/24/2024 12/24/2025 6 6 Encounter Details Date Type Department Care Team ([facility] st Contact Info) Description 12/24/2024 Orders Only [facility] [address] [place] [phone] Sary Gonzalez MD [address] [place] [address] Type 2 diabetes mellitus (CMS/HCC) [...] Description 07/07/2025 9:30 AM EST Office Visit [facility] [address] [place] [address] Francisco, Radha, OD [address] [place] [address] Scheduled Referrals Name Type Priority Associated Diagnoses [...] documented as of this encounter Care Teams Hearing Stenographer Relationship Specialty Start Date End Date Carlita Angela MD [address] [place] [phone] PCP - General Internal Medicine 02/22/23 documented as of this encounter
--- OUTSIDE RECORDS SUMMARY | 2025-05-15 14:45 | XMS_ITS | Clinical Summary ---
Author Organization [employer] Address [address] [facility] [address] [place] [address] Care Team Providers Care Reimbursement Liaison Name Role Phone Carlita Angela MD Primary Care Pro vider Allergies No known active allergies Medications Skin Protectants, Misc. (eucerin) cream Apply topically every 12 (twelve) hours. 1 Active OneTouch Ultra Test test stripIndications: Type 2 diabetes mellitus with retinopathy, without long-term current use of insulin, macular edema presence unspecified, unspecified laterality, unspecified retinopathy severity (CMS/HCC) TEST BLOOD SUGAR TWICE DAILY 100 strip 11 4 Active Lancets (OneTouch Delica Plus [id number]) misc TEST BLOOD SUGAR TWICE DAILY 100 each 11 4 Active Alcohol Swabs (Alcohol Prep) 70 % pads USE DIRECTED TWICE DAILY NEEDED 100 each 3 5 Active ezetimibe (Zetia) 10 MG tablet TAKE 1 TABLET BY MOUTH AT BEDTIME 90 tablet 1 5 Active cholecalciferol (D3-1000) 25 MCG (1000 UT) capsule TAKE 1 CAPSULE BY MOUTH EVERY MORNING 90 capsule 1 5 Active folic acid (Folvite) 1 MG tabletIndications :Acute reaction to stress TAKE 1 TABLET BY MOUTH EVERY MORNING 90 tablet 1 5 Active ammonium lactate (Lac-Hydrin) 12 % lotion APPLY TO THE AFFECTED AREA(S) NEEDED FOR DRY SKIN Active tiotropium (Spiriva HandiHaler) 18 MCG inhalation capsuleIndication s:Chronic obstructive pulmonary disease, unspecified COPD type (CMS/HCC),Cigaret te nicotine dependence without complication USE 1 CAPSULE FOR INHALATION ONCE A DAY DO NOT SWALLOW CAPSULE 30 capsule 11 5 Active losartan-hydroCHL OROthiazide (Hyzaar) 100-25 MG tablet TAKE 1 TABLET BY MOUTH EVERY MORNING 90 tablet 1 5 Active Jardiance 25 MGIndications:Typ e 2 diabetes mellitus with retinopathy, without long-term current use of insulin, macular edema presence unspecified, unspecified laterality, unspecified retinopathy severity (CMS/HCC) TAKE 1 TABLET BY MOUTH EVERY MORNING 90 tablet 1 5 Active Aspirin Low Dose 81 MG EC tabletIndications :Pulmonary nodules TAKE 1 TABLET BY MOUTH AT BEDTIME 90 tablet 1 5 Active metFORMIN (Glucophage) 1000 MG tablet TAKE 1 TABLET BY MOUTH TWICE DAILY IN THE MORNING AND IN THE EVENING 180 tablet 1 5 Active amLODIPine (Norvasc) 10 MG tablet TAKE 1 TABLET BY MOUTH EVERY MORNING 90 tablet 1 5 Active glipiZIDE (Glucotrol) 5 MG tabletIndications :Type 2 diabetes mellitus with retinopathy, without long-term current use of insulin, macular edema presence unspecified, unspecified laterality, unspecified retinopathy severity (CMS/HCC) TAKE 1 TABLET BY MOUTH EVERY MORNING WITH FOOD 90 tablet 5 Active cyanocobalamin (Vitamin B-12) 500 MCG tablet TAKE 1 TABLET BY MOUTH EVERY MORNING (MONDAY, MONDAY, MONDAY) 12 tablet 2 5 Active pregabalin (Lyrica) 50 MG capsuleIndication s:Fibromyalgia TAKE 1 CAPSULE BY MOUTH TWICE DAILY IN THE MORNING AND AT BEDTIME 60 capsule 2 5 Active amitriptyline (Elavil) 10 MG tablet TAKE 1 TABLET BY MOUTH AT BEDTIME 30 tablet 2 5 Active loratadine (Claritin) 10 MG tabletIndications :Seasonal allergies TAKE 1 TABLET BY MOUTH EVERY MORNING 90 tablet 5 Active atorvastatin (Lipitor) 80 MG tablet TAKE 1 TABLET BY MOUTH AT BEDTIME 90 tablet 5 Active Januvia 50 MG tabletIndications :Type 2 diabetes mellitus with retinopathy, without long-term current use of insulin, macular edema presence unspecified, unspecified laterality, unspecified retinopathy severity (CMS/HCC) TAKE 1 TABLET BY MOUTH EVERY MORNING 90 tablet 5 Active Blood Glucose Monitoring Suppl (Accu-Chek Guide Me) w/Device kitIndications:Ty pe 2 diabetes mellitus with diabetic polyneuropathy, without long-term current use of insulin (CMS/HCC) 1 each 2 times daily. Use to check blood sugar twice daily 1 kit 5 Active glucose blood (Accu-Chek Guide Test) test stripIndications: Type 2 diabetes mellitus with diabetic polyneuropathy, without long-term current use of insulin (CMS/HCC) Use to check blood sugar 2 times daily 100 each 11 5 05/07/20 26 Active Accu-Chek Softclix Lancets lancetsIndication s:Type 2 diabetes mellitus with diabetic polyneuropathy, without long-term current use of insulin (CMS/HCC) Use to check blood sugar 2 times daily 100 each 12 5 05/07/20 26 Active Active Problems Problem Noted Date Diagnosed Date [...] + Ventolin DAPHNE use PRN Atherosclerosis of [place] 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 EKG, [...] daily in the AM with food Declines software educator and diet changes Start Trulicity 0.75mg/0.5ml [...] in coffee, cakes, and limiting rice. Declines software educator and diet changes Start Trulicity 0.75mg/0.5ml weekly (02/22/23) Followup 3 months with new PCP LTBI (latent tuberculosis infection) Resolved Problems Problem Noted Date Diagnosed Date Resolved Date Smoker 06/29/2015 02/22/2023 Encounters Date Type Department Care Team Description 05/14/2025 Refill [facility] MEDICINE [address] [place] [address] Carlita Angela MD 05/14/2025 Refill [facility] MED & PEDS [address] [place] [address] Feliciano Prakash MD Acute reaction to stress 05/07/2025 Refill [facility] [address] [place] [address] Carlita Angela MD Type 2 diabetes mellitus with diabetic polyneuropathy, without long-term current use of insulin ([facility]) 04/09/2025 Refill [facility] [address] [place] [address] Carlita Angela MD Type 2 diabetes mellitus with retinopathy, without long-term current use of insulin, macular edema presence unspecified, unspecified laterality, unspecified retinopathy severity ([facility]/HCC) 03/17/2025 Refill [facility] [address] [place] [address] Carlita Angela MD Seasonal allergies 03/03/2025 Telephone [facility] [address] [place] [address] Carlita Angela MD chart prep 02/20/2025 Telephone [facility] [address] [place] [address] Carlita Angela MD No Show ( Pt no show to 9 AM follow up appointment with letter will be sent. ) 02/20/2025 Refill [facility] [address] [place] [address] Carlita Angela MD Seasonal allergies; Type 2 diabetes mellitus with retinopathy, without long-term current use of insulin, macular edema presence unspecified, unspecified laterality, unspecified retinopathy severity ([facility]) 02/20/2025 Refill [facility] [address] [place] [address] Leola Sauer MD Fibromyalgia from Last 3 Months Immunizations Immunization Administration [...] Description 07/07/2025 9:30 AM EST Office Visit [facility] OPTOMETRY [address] [place], [place] [phone] Francisco, Radha, OD [address] [place] [address] Health Maintenance Due Date Last Done Comments [...] 8:08 AM EDT) Creatinine, Urine 27.38 mg/dL [facility] Microalbumin Urine 459.0 mg/L H [facility] Microalbum Creatinine Ratio Ur 1,676.4(H ) <30 ug/mg cr [facility] Comment:Albumin/Creatinine R atio Reference Ranges: Normal: < 30 ug/mg creatinine Microalbuminuria: 30 - 300 ug/mg creatinineClinical Albuminuria: > 300 ug/mg creatinine Urine (Urine, Random) 12/17/2024 8:08 AM EDT 12/17/2024 11:18 AM EDT us Carlita Cantu MD LAB URINE ORDERAB LES Final Result Performing Organization Address [facility]/ZIP Co de Phone Number [facility] [address] [place] [phone] * (ABNORMAL) Hemoglobin A1c (12/17/2024 8:08 AM EDT) Hemoglobin A1c 8.0(H) <6.0 % [facility] Comment:Hemoglobin A1C Refer ence Range Adults: 4.8 - 6.0 % Non diabetic: < 6.0 % Goal: < 7.0 %Additional Action Suggested: > 8.0 %Note: Hemoglobin A1c results are invalid for patients with abnormal amounts of HbF. Blood transfusions may impact the HbA1c concentration in the patient sample. Estimated Average Glucose 183 mg/dL [facility] Comment:eAG = Estimated ave rage glucose which is %A1C expressed asaverage glucose, using the formula of the O2I-XhhcfowIfpqpfa Glucose study (ADAG), Diabetes Care, Vol.31,#8,Mar. 2007 Blood Venous blood specimen / Unknown 12/17/2024 8:08 AM EDT 12/17/2024 11:16 AM EDT us Carlita Cantu MD LAB BLOOD ORDERAB LES Final Result Performing Organization Address [facility]/ZIP Co de Phone Number [facility] [address] [place] [phone] * Lipid Panel, Standard (12/17/2024 8:08 AM EDT) Triglycerides 108 <150 mg/dL [facility] Comment:Desirable Triglyceri de: less than 150 mg/dLBorderline High Triglyceride 150-199 mg/dLHigh Triglyceride: 200-499 mg/dLVery High Triglyceride: greater than or equal to 5OO mg/dL Cholesterol 132 <200 mg/dL [facility] Comment:Desirable Cholestero l: less than 200 mg/dLBorderline High Cholesterol: 200-239 mg/dLHigh Cholesterol: greater than 239 mg/dL LDL Cholesterol Calculated 60 <100 mg/dL [facility] Comment:Desirable LDL: less than 100 mg/dLNear Optimal/Above Optimal LDL: 110- 129 mg/dLBorderline High LDL: 130-159 mg/dLHigh LDL: 160-189 mg/dLVery High LDL: greater than or equal to 190 mg/dL HDL Cholesterol 51 >40 mg/dL [facility] Comment:Desirable HDL: great er than 40 mg/dL Note: This HDL assay may give artificially low results in patients with liver disease. Blood Venous blood specimen / Unknown 12/17/2024 8:08 AM EDT 12/17/2024 11:16 AM EDT us Carlita Cantu MD LAB BLOOD ORDERAB LES Final Result Performing Organization Address [facility] Co de Phone Number [facility] [address] [place] [phone] * Hepatitis C Antibody with Reflex to HCV, RNA, Quantitative, Real-Time PCR (10/31/2023 8:06 AM EST) Hepatitis C Antibody Nonreactive Nonreactive [facility] Comment:Antibodies to HCV no t detected; does not exclude early acuteHCV infection. Blood Venous blood specimen / Unknown 10/31/2023 8:06 AM EST 10/31/2023 11:33 AM EST us Carlita Cantu MD LAB BLOOD ORDERAB LES Final Result Performing Organization Address City/[facility]/ZIP Co de Phone Number [facility] [address] [place] [phone] * CT Lung Screening Low dose (07/28/2023 8:11 AM EST) Anatomical Region Laterality Modality Lung Computed Tomogra phy 07/28/2023 8:11 AM EST Narrative 08/02/2023 11:18 AM EST [address] [address] [address] Scan Report Signed Patient: Aren Waters MR#: [id number] : 1950 Acct:[id number] Age/Sex: 73 / M ADM Date: 07/28/23 Loc: HO.CT Attending Dr: Marycarmen Eric PA-C Ordering Physician: Marycarmen Eric PA-C Date of Service: 07/28/23 Procedure(s): CT lung screening Accession Number(s): [id number] cc: Marycarmen Eric PA-C; Siobhan [facility] SPEC EXAMINATION: CT CHEST LOW-DOSE SCREENING WITHOUT CONTRAST HISTORY: Asymptomatic patient meeting criteria for lung screening. Smoker PATIENT PACK-YEAR HISTORY: 69 Current Smoker: Yes If former smoker, years since quitting: NA COMPARISON: 04/06/2022 TECHNIQUE: Multidetector volumetric non-contrast CT imaging of the chest was obtained on a [id number] 128 slice scanner using low dose screening CT technique. Axial thin section 0.625 mm reformations in soft tissue and lung windows were obtained. Sagittal and coronal reformations were obtained. Axial MIP images were also created and reviewed. RECONSTRUCTED WIDTH: 1.25 mm x 1.25 mm TOTAL EXAM DLP: 52 mGy-cm CTDIvol: 1.40 mGy FINDINGS: The filer finish view is unremarkable LUNGS: There is stable [...] in OV> 08/02/23 1114 DD/ 0811 TD/TT: Front Desk Clerk: Procedure Note Donotuseinterpreter, Image - 08/02/[address] [address] [address] Scan Report Signed Patient: Conrad Waters#: [id number] : 1950cct:[id number] Age/Sex: 73 / MADM Date: 07/28/23 Loc: HO.CT Attending Dr: Marycarmen Eric PA-C Ordering Physician: Marycarmen rEic PA-C Date of Service: 07/28/23 Procedure(s): CT lung screening Accession Number(s): [id number] cc: Marycarmen Eric PA-C; Buster,Siobhan Keely [facility] SPEC EXAMINATION: CT CHEST LOW-DOSE SCREENING WITHOUT CONTRAST HISTORY: Asymptomatic patient meeting criteria for lung screening. Smoker PATIENT PACK-YEAR HISTORY: 69 Current Smoker: Yes If former smoker, years since quitting: NA COMPARISON: 04/06/2022 TECHNIQUE: Multidetector volumetric non-contrast CT imaging of the chest was obtained on a GE [id number] 128 slice scanner using low dose screening CT technique. Axial thin section 0.625 mm reformations in soft tissue and lung windows were obtained. Sagittal and coronal reformations were obtained. Axial MIP images were also created and reviewed. RECONSTRUCTED WIDTH: 1.25 mm x 1.25 mm TOTAL EXAM DLP: 52 mGy-cm CTDIvol: 1.40 mGy FINDINGS: The filer finish view is unremarkable LUNGS: There is stable [...] in OV> 08/02/23 1114 DD/ 0811 TD/TT: Front Desk Clerk: [facility] External Provider IMG CT PROCEDURES Final Result from Last 3 Months or Most Recently Relevant to Health Maintenance Insurance [employer] MEDICARE ADVANTAGE HMO [facility] [address] [place] [address] [id number] [place] [id number] Care Teams Reimbursement Liaison Relationship Specialty Start Date End Date Carlita Angela MD [address] [place] [phone] PCP - General Internal Medicine 02/22/23
--- OUTSIDE RECORDS SUMMARY | 2025-05-15 14:45 | XMS_ITS | Encounter Summary ---
Author Organization [employer] Address [address] [facility] [address] [place] [address] Care Team Providers Care Regulator Pin Inserter Name Role Phone Carlita Angela MD Primary Care Pro vider Reason for Visit * Reason Comments Med Refill Encounter Details Date Type Department Care Team ([facility] st Contact Info) Description 05/14/2025 Refill [facility] CH[facility] MED & PEDS [address] [place], [place] [phone] Feliciano Prakash MD [address] [place] [address] Acute reaction to stress Social History Tobacco Use Types Packs/Day Years [...] your housing situation today? I have joel sing 12/10/[address] you li [...] Description 07/07/2025 9:30 AM EST Office Visit [facility] OPTOMETRY [address] [place] [address] Francisco, Radha, OD [address] [place] [address] documented as of this encounter Visit Diagnoses Diagnosis Acute reaction to stress Unspecified acute reaction to stress documented in this encounter Additional Health Concerns Assessment Noted Time PHQ-9 Depression Total Score: 0 11/19/19 23 9:08 AM EDT documented as of this encounter Care Teams Regulator Pin Inserter Relationship Specialty Start Date End Date Carlita Angela MD [address] [place] [address] PCP - General Internal Medicine 02/22/23 documented as of this encounter
--- OUTSIDE RECORDS SUMMARY | 2025-05-15 14:45 | XMS_ITS | Clinical Summary ---
Author Organization [address] [facility] Address [address] [place] [phone] Phone Care Team Providers Care Annual Giving Manager Name Role Phone Physician, Pcp Unknown Primary [...] topic Insurance [employer] MEDICARE Care Teams Annual Giving Manager Relationship Specialty Start Date End Date Physician, Pcp Unknown PCP - General 07/03/24
--- OUTSIDE RECORDS SUMMARY | 2025-05-15 14:45 | XMS_ITS | Encounter Summary ---
Author Organization [employer] Address [address] [facility] [address] [place] [address] Care Team Providers Care Storeroom Clerk Name Role Phone Carlita Angela MD Primary Care Pro vider Reason for Visit * Reason Comments Med Refill Encounter Details Date Type Department Care Team ([facility] st Contact Info) Description 05/14/2025 Refill [facility] MEDICINE [address] [place], [place] [phone] Carlita Angela MD [address] [place], [place] [phone] Social History Tobacco Use Types Packs/Day Years [...] Description 07/07/2025 9:30 AM EST Office Visit [facility] OPTOMETRY [address] [place], [place] [phone] Francisco, Radha, OD [address] [place] [address] documented as of this encounter Visit Diagnoses Not on filedocumented in this encounter Additional Health Concerns Assessment Noted Time PHQ-9 Depression Total Score: 0 11/19/19 9:08 AM EDT documented as of this encounter Care Teams Storeroom Clerk Relationship Specialty Start Date End Date Carlita Angela MD [address] [place] [address] PCP - General Internal Medicine 02/22/23 documented as of this encounter
== END 2025-05-15 13:09 | disposition home or self-care (01) ==
LOC: HO.HCS 12:40
PROVIDERS: PCP Student in an Organized Health Care Education/Training Program; Visit Provider Internal Medicine
DX: I45.9 Conduction disorder, unspecified (principal); E11.8 Type 2 diabetes mellitus with unspecified complications; I10 Essential (primary) hypertension; E78.5 Hyperlipidemia, unspecified; I25.10 Atherosclerotic heart disease of native coronary artery without angina pectoris; I51.7 Cardiomegaly; Q24.8 Other specified congenital malformations of heart
CPT/HCPCS: 99214; G2211

== ENCOUNTER → 2025-05-15 12:40 | Outpatient (BNVA) | payer MEDICARE, MEDICAID, SELFPAY | PROVIDERS: PCP Student in an Organized Health Care Education/Training Program; Visit Provider Internal Medicine | DX: I44.1 Atrioventricular block, second degree (principal); Q24.8 Other specified congenital malformations of heart; I45.9 Conduction disorder, unspecified; I10 Essential (primary) hypertension; I25.10 Atherosclerotic heart disease of native coronary artery without angina pectoris; I51.7 Cardiomegaly; E11.8 Type 2 diabetes mellitus with unspecified complications; E78.5 Hyperlipidemia, unspecified | CPT/HCPCS: 99212 ==